=== PATIENT | female | born 1955 | race Caucasian/White ===

== ENCOUNTER 2016-10-10 06:30 | Emergency (ER) | payer MEDICARE, OTHER ==
[~2016-10-10] VITALS: Ht 162.6 cm; Wt 115.2 kg
[~2016-10-10 06:30] MED LIST: INSU100V7 SQ; METF500T4 PO
--- NOTE | 2016-10-10 06:42 | NUR ---
PT W/C TO ER BED 7 PT STATES "WENT FOR DIALYSIS AND BP WAS LOW"; DENIES ANY S/S AT THIS TIME. PT AOX4 RR EVEN AND UNLABORED. NO SOB NOTED. NAD NOTED. NO NVD AT THIS TIME. PT NOT DIAPHORETIC. PT GOWNED AND PLACED ON MONITOR. DR RAVI AT BEDSIDE FOR EVAL.
[2016-10-10] MEDS ORDERED: IV SET PRIMARY PUMP SET 1 EA INFUS.SET MC ONE (06:55)
[2016-10-10] MEDS ORDERED: IV NS 0.9% 250 ML IV ONE (06:55)
[2016-10-10] MEDS ORDERED: IV NS 0.9% 500 ML BAG IV ONE (07:00)
--- NOTE | 2016-10-10 07:15 | NUR ---
UNABLE TO COLLECT URINE. PT STATES SHE IS ANURIC.
--- NOTE | 2016-10-10 07:16 | NUR ---
XRAY AT THE BEDSIDE.
--- NOTE | 2016-10-10 07:22 | NUR ---
REPORT GIVEN TO FRANCO OBREGON FOR CONTINUE OF CARE.
[2016-10-10 07:37] LABS: BASOPHILS % (AUTO) 0.5 % (0.0-2.0); EOSINOPHILS # (AUTO) 0.2 /CMM (0.0-0.7); EOSINOPHILS % (AUTO) 4.5 % (0.0-6.0); HEMATOCRIT 33 % (33-45); HEMOGLOBIN 10.7 g/dL (11.5-14.8); LYMPHOCYTES # (AUTO) 1.1 /CMM (0.8-4.8); LYMPHOCYTES % (AUTO) 26.4 % (20.0-44.0); MEAN CORPUSCULAR HEMOGLOBIN 27 PG (26.0-33.0); MEAN CORPUSCULAR HGB CONC 32 g/dl (31.0-36.0); MEAN CORPUSCULAR VOLUME 84 fL (82-100); MONOCYTES # (AUTO) 0.4 /CMM (0.1-1.30); MONOCYTES % (AUTO) 10.6 % (2.0-12.0); NEUTROPHILS # (AUTO) 2.3 /CMM (1.8-8.9); PLATELET COUNT (AUTO) 193 /CMM (150-450); RDW COEFFICIENT OF VARIATION 18.9 (11.5-15.0)
[2016-10-10 07:49] LABS: CALCIUM, SERUM 8.2 mg/dL (8.5-10.1); CARBON DIOXIDE 28 mmol/L (21-32); CHLORIDE 101 mmol/L (98-107); GFR 6 mL/min (>60); GLUCOSE 104 mg/dL (74-106); POTASSIUM 4.6 mmol/L (3.5-5.1); SODIUM SERUM 135 mmol/L (136-145); UREA NITROGEN, BLOOD 33 mg/dL (7-18)
[2016-10-10 07:53] LABS: LACTIC ACID 1.1 mmol/L (0.4-2.0)
[2016-10-10 07:54] LABS: CREATININE 7.5 mg/dL (0.6-1.3)
[2016-10-10 07:58] LABS: INR 0.95 (0.87-1.13); PROTHROMBIN TIME 10.1 SECS (9.5-12.7)
[2016-10-10 08:00] LABS: ALANINE AMINOTRANSFERASE 14 U/L (12-78); ALBUMIN 3.2 g/dL (3.4-5.0); ALKALINE PHOSPHATASE 200 U/L (46-116); ASPARTATE AMINOTRANSFERASE 10 U/L (15-37); BILIRUBIN,DIRECT 0.1 mg/dL (0.0-0.2); BILIRUBIN,TOTAL 0.4 mg/dL (0.2-1.0); TOTAL PROTEIN, SERUM 7.5 g/dL (6.4-8.2); TROPONIN I < 0.017 ng/mL (0.00-0.056)
--- NOTE | 2016-10-10 08:49 | NUR ---
Paged Dr. Alia Garcia for consult, she is not in the office today
--- NOTE | 2016-10-10 08:57 | NUR ---
paged Dr. Doll, the financial services professional for Dr. Elizabeth
[2016-10-10 09:43] VITALS: BP 125/85
--- NOTE | 2016-10-10 09:44 | NUR ---
Patient discharged to home in stable condition. Written and verbal after care instructions given. Patient verbalizes understanding of instruction.IV removed. Catheter intact and site benign. Pressure and 4x4 applied to site. No bleeding noted.
== END 2016-10-10 09:44 | disposition home or self-care (01) ==
LOC: ER 06:31
DX: I12.0 Hypertensive chronic kidney disease with stage 5 chronic kidney disease or end stage renal disease (principal); I95.9 Hypotension, unspecified; E11.9 Type 2 diabetes mellitus without complications; Z89.512 Acquired absence of left leg below knee; Z79.4 Long term (current) use of insulin; Z99.2 Dependence on renal dialysis
CPT/HCPCS: 36415; 71010-TC; 80048-TC; 80076-TC; 83605-TC; 84484-TC; 85025-TC; 85730-TC; 87040-TC; A4606; J7050; Z7610

== ENCOUNTER 2017-09-06 23:30 | Emergency (ER) | payer MEDICARE, OTHER ==
[~2017-09-06] VITALS: Ht 162.6 cm; Wt 118.4 kg
[~2017-09-06 23:30] MED LIST changes: +METF-440 PO; -METF500T4 PO
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
[2017-09-07] MEDS ORDERED: HYDROCODONE/APAP 5/325MG 1 EACH TABLET PO ONE (00:30)
[2017-09-07] MEDS ORDERED: HYDROCODONE/APAP 5/325MG 1 EACH TABLET ONE (00:34)
--- NOTE | 2017-09-07 00:35 | NUR ---
xr at bedside.
[2017-09-07] MEDS ORDERED: diphenhydrAMINE HCL 25 MG CAPSULE ONE (02:25)
--- NOTE | 2017-09-07 04:13 | NUR ---
Patient discharged in stable condition. Written and verbal after care instructions given. Patient verbalizes understanding of instruction. Patient wheeled to [facility]. Nad noted. vss. No further complaints.
[2017-09-07 04:15] VITALS: BP 128/76
== END 2017-09-07 04:15 | disposition home or self-care (01) ==
LOC: ER 23:31
DX: S40.011A Contusion of right shoulder, initial encounter (principal); I10 Essential (primary) hypertension; E11.9 Type 2 diabetes mellitus without complications; Z99.2 Dependence on renal dialysis; Z86.73 Personal history of transient ischemic attack (TIA), and cerebral infarction without residual deficits; Z89.512 Acquired absence of left leg below knee; Z79.4 Long term (current) use of insulin; V00.831A Fall from motorized mobility scooter, initial encounter; Y93.89 Activity, other specified; Y92.413 State road as the place of occurrence of the external cause; Y99.8 Other external cause status
CPT/HCPCS: 73030-TC; 73060-TC; A4606; Q0163; Z7610

== ENCOUNTER → 2019-06-18 | Emergency (ER) | payer MEDICARE, OTHER ==
[~2019-06-18] VITALS: Ht 162.6 cm; Wt 117.9 kg
[~2019-06-18] MED LIST changes: +oxyCODONE/APAP (5/325 MG) 1 UDTAB TABLET ONE; +oxyCODONE/APAP (5/325 MG) 1 UDTAB TABLET PO ONE
[2019-06-18 13:13] VITALS: BP 129/60
== END | disposition home or self-care (01) ==
LOC: ER 13:05
DX: G54.6 Phantom limb syndrome with pain (principal); E11.22 Type 2 diabetes mellitus with diabetic chronic kidney disease; I12.0 Hypertensive chronic kidney disease with stage 5 chronic kidney disease or end stage renal disease; N18.6 End stage renal disease; Z99.2 Dependence on renal dialysis; Z98.890 Other specified postprocedural states; Z79.84 Long term (current) use of oral hypoglycemic drugs; Z79.4 Long term (current) use of insulin; Z89.512 Acquired absence of left leg below knee
CPT/HCPCS: 73552

== ENCOUNTER 2019-07-11 19:03 | Emergency (ER) | payer MEDICARE, OTHER ==
[~2019-07-11] VITALS: Ht 162.6 cm; Wt 110.2 kg
[~2019-07-11 19:03] MED LIST changes: -oxyCODONE/APAP (5/325 MG) 1 UDTAB TABLET ONE; -oxyCODONE/APAP (5/325 MG) 1 UDTAB TABLET PO ONE
[2019-07-11] MEDS ORDERED: LORAZEPAM INJ 2 MG/ML VIAL ONE (19:25)
[2019-07-11] MEDS ORDERED: FUROSEMIDE 40 MG/4 ML VIAL ONE (19:25)
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
[2019-07-11] MEDS ORDERED: ONDANSETRON 4 MG TAB.RAPDIS ONE (19:48)
[2019-07-11] MEDS ORDERED: ONDANSETRON 4 MG TAB.RAPDIS PO ONE (20:00)
--- NOTE | 2019-07-11 20:12 | NUR ---
Patient discharged to home in stable condition. Written and verbal after care instructions given. Patient verbalizes understanding of instruction. Tap card given as requested by patient
[2019-07-11 20:15] VITALS: BP 121/84
[2019-09-04] MEDS ORDERED: RXVAN XX (10:24)
== END 2019-07-11 20:15 | disposition home or self-care (01) ==
LOC: ER 19:04
DX: S39.012A Strain of muscle, fascia and tendon of lower back, initial encounter (principal); E11.22 Type 2 diabetes mellitus with diabetic chronic kidney disease; N18.6 End stage renal disease; Z99.2 Dependence on renal dialysis; Z89.512 Acquired absence of left leg below knee; Z98.890 Other specified postprocedural states; Z60.2 Problems related to living alone; Z79.4 Long term (current) use of insulin; Z79.84 Long term (current) use of oral hypoglycemic drugs; V03.99XA Pedestrian with other conveyance injured in collision with car, pick-up truck or van, unspecified whether traffic or nontraffic accident, initial encounter; Y93.89 Activity, other specified; Y92.413 State road as the place of occurrence of the external cause; Y99.8 Other external cause status
CPT/HCPCS: 99283; Q0162; J1940; J2060

== ENCOUNTER 2019-08-29 08:39 | Inpatient (IN) | payer MEDICARE, OTHER ==
[~2019-08-29] VITALS: Ht 162.6 cm; Wt 111.1 kg
[2019-08-29] MEDS ORDERED: PIPERACILLIN /TAZOBACTAM 3.375 G in IV D5W 50 ML IV ONE (10:00)
[2019-08-29] MEDS ORDERED: VANCOMYCIN 1 GM in IV D5W 250 ML IV ONE (10:00)
[2019-08-29] MEDS ORDERED: IV NS 0.9% 1,000 ML BAG IV ONE (10:00)
--- NOTE | 2019-08-29 10:09 | NUR ---
LINE STARTED ON L AC G 20, BLOOD AND CULTURES DRAWN FROM LINE AND SENT TO LAB
[2019-08-29 10:13] LABS: BASOPHILS % (AUTO) 0.6 % (0.0-2.0); EOSINOPHILS % (AUTO) 3.3 % (0.0-6.0); HEMATOCRIT 44 % (33-45); HEMOGLOBIN 13.5 g/dL (11.5-14.8); LYMPHOCYTES # (AUTO) 0.6 /CMM (0.8-4.8); MEAN CORPUSCULAR HGB CONC 31 g/dl (31.0-36.0); MEAN CORPUSCULAR VOLUME 80 fL (82-100); MONOCYTES # (AUTO) 0.5 /CMM (0.1-1.30); MONOCYTES % (AUTO) 9.6 % (2.0-12.0); NEUTROPHILS # (AUTO) 4.1 /CMM (1.8-8.9); NEUTROPHILS % (AUTO) 75.5 % (43.0-81.0); PLATELET COUNT (AUTO) 190 /CMM (150-450); RED BLOOD CELL COUNT(AUTO) 5.55 MIL/uL (4.0-5.2); WHITE BLOOD COUNT (AUTO) 5.4 K/uL (4.3-11.0)
[2019-08-29 10:28] LABS: ALANINE AMINOTRANSFERASE 12 U/L (12-78); ALBUMIN 3.2 g/dL (3.4-5.0); ALKALINE PHOSPHATASE 246 U/L (46-116); ASPARTATE AMINOTRANSFERASE 15 U/L (15-37); BILIRUBIN,DIRECT 0.1 mg/dL (0.0-0.2); BILIRUBIN,TOTAL 0.4 mg/dL (0.2-1.0); CALCIUM, SERUM 8.8 mg/dL (8.5-10.1); CARBON DIOXIDE 29 mmol/L (21-32); CHLORIDE 98 mmol/L (98-107); CREATININE 6.6 mg/dL (0.6-1.3); GLUCOSE 72 mg/dL (74-106); SODIUM SERUM 138 mmol/L (136-145); TOTAL PROTEIN, SERUM 8.4 g/dL (6.4-8.2); UREA NITROGEN, BLOOD 19 mg/dL (7-18)
[2019-08-29] MEDS ORDERED: MORPHINE SULFATE INJ 4 MG/ML DISP.SYRIN ONE (10:33)
[2019-08-29] MEDS ORDERED: ONDANSETRON HCL/PF 4 MG/2 ML VIAL ONE (10:33)
--- NOTE | 2019-08-29 10:42 | NUR ---
CALLED NURSING SUP FOR TELE BED.
[2019-08-29] MEDS ORDERED: ONDANSETRON HCL/PF 4 MG/2 ML VIAL IVP ONE (11:00)
[2019-08-29] MEDS ORDERED: MORPHINE SULFATE INJ 2 MG/ML DISP.SYRIN IV ONE ×2 (11:00→21:30)
--- NOTE | 2019-08-29 11:31 | NUR ---
BED ASSIGNED TO 311-1
--- NOTE | 2019-08-29 11:56 | NUR ---
REPORT GIVEN TO MS RN FOR CONTINUITY OF CARE
[2019-08-29] MEDS ORDERED: DULO20CA19 PO (12:11)
[2019-08-29] MEDS ORDERED: MIDO5TAB4 PO (12:11)
[2019-08-29] MEDS ORDERED: GABA600T12 PO (12:11)
[2019-08-29] MEDS ORDERED: ALPR2TAB7 PO (12:11)
[2019-08-29] MEDS ORDERED: SEVE800T28 PO (12:11)
[2019-08-29] MEDS ORDERED: OXYC-454 PO (12:11)
[2019-08-29] MEDS ORDERED: INSU100V10 SL (12:11)
--- NOTE | 2019-08-29 12:30 | NUR ---
TRACER BULLET CHARGING MACHINE OPERATOR NOTES PATIENT RECEIVED ALERT AND ORIENTED X4, NO RESPIRATORY DISTRESS, ON 02 AT 2L VIA NASAL CANULA. AOC PLANS INTELLIGENCE OFFICER CHIEF ON SR 80S, C/O PAIN AT 8/10 ON MID BACK. SKIN WARM TO TOUCH, SKIN ASSESSED NO SKIN BREAKDOWN. IV ACCESS SITE ON THE LAC #20G INTACT AND PATENT, VANCOMYCIN IV INFUSING. BELONGINGS ACCOUNTED FOR AND SIGNED. PATIENT'S NEEDS ATTENDED, BED ON LOWEST LOCKED POSITION, CALL LIGHT WITHIN REACH. WILL CONTINUE TO MONITOR.
[2019-08-29 13:00] VITALS: BP 137/77
[2019-08-29] MEDS ORDERED: DEXTROSE 50%-WATER 50 ML DISP.SYRIN IV PRN (14:30)
[2019-08-29] MEDS ORDERED: Z GUARD REMEDY 2 OZ OINT TP PRN (14:30)
[2019-08-29] MEDS ORDERED: MAGNESIUM HYDROXIDE 30 ML UDC PO PRN (14:30)
[2019-08-29] MEDS ORDERED: HYDROCODONE/APAP 5/325MG 1 EACH TABLET PO PRN (14:30)
[2019-08-29] MEDS ORDERED: ACETAMINOPHEN 325 MG TABLET PO PRN (14:30)
[2019-08-29] MEDS ORDERED: MAG HYDROX/AL HYDROX/SIMETH 30 ML UDC PO PRN (14:30)
[2019-08-29] MEDS ORDERED: FEE PK DOSING 1 MIN EA MC ONE (14:35)
[2019-08-29] MEDS: MORPHINE SULFATE INJ 2 MG/ML DISP.SYRIN IV PRN ×2 (14:45→19:33)
[2019-08-29 16:00] VITALS: BP 128/73
[2019-08-29] MEDS: MIDODRINE HCL (5MG) 5 MG TABLET PO SCH (17:00)
[2019-08-29] MEDS ORDERED: Medication Not On Formulary EA (Oxycodone Hcl/Acetaminophen (Oxycodone-Apap 10-325 Mg Ta PO SCH (17:00)
[2019-08-29] MEDS: GABAPENTIN 300 MG CAPSULE PO SCH (17:12)
[2019-08-29] MEDS: SEVELAMER CARBONATE 800 MG TABLET PO SCH (17:13)
[2019-08-29] MEDS: BLOOD SUGAR DIAGNOSTIC 1 EACH STRIP VI SCH ×2 (17:15→22:02)
[2019-08-29] MEDS: INSULIN REGULAR, HUMAN 100 UNIT/ML 3 ML VIAL SQ PRN (17:20)
--- NOTE | 2019-08-29 19:50 | NUR ---
AGRI BUSINESS AGENT NOTES PATIENT AWAKE IN BED ON THE PHONE, NO RESPIRATORY DISTRESS, C/O PAIN IN MID BACK, GAVE MORPHINE IV 2MG. IV ACCESS SITE INTACT AND PATENT, SKIN WARM TO TOUCH. PATIENT'S NEEDS ATTENDED, BED ON LOWEST LOCKED POSITION, CALL LIGHT WITHIN REACH. WILL ENDORSE TO ONCOMING NURSE FOR HARVEY.
--- NOTE | 2019-08-29 19:51 | NUR ---
TELE/RN OPENING NOTES: PATIENT RECEIVED ALERT AND ORIENTED X4, NO RESPIRATORY DISTRESS, ON 2L OF OXYGEN VIA NASAL CANULA. ORTHOPAEDIC GENERAL ON SR 80S, C/O PAIN AT 6/10 ON MID BACK DESPITE HAVING RECEIVED MORPHINE 2MG RECENTLY FOR PAIN. SKIN WARM TO TOUCH, SKIN ASSESSED NO SKIN BREAKDOWN. IV ACCESS SITE ON THE LAC #20G INTACT AND PATENT. PATIENT'S NEEDS ATTENDED, BED ON LOWEST LOCKED POSITION, CALL LIGHT WITHIN REACH. WILL CONTINUE TO MONITOR ACCORDINGLY.
[2019-08-29 20:00] VITALS: BP 133/80
[2019-08-29 20:19] VITALS: BP 133/80
[2019-08-29] MEDS ORDERED: MORPHINE SULFATE INJ 2 MG/ML DISP.SYRIN IV PRN (20:30)
[2019-08-29] MEDS ORDERED: PIPERACILLIN /TAZOBACTAM 2.25 G in IV D5W 50 ML IV SCH (21:00)
[2019-08-29] MEDS: CEFEPIME 1 GM in IV D5W 50 ML IV SCH (21:10)
--- NOTE | 2019-08-29 21:17 | NUR ---
TELE/RN NOTES: DR. WINSTON VILLALOBOS CALLED REGARDING PATIENT'S PAIN CONCERN. ORDERED 2MG MORPHINE IVPUSH ONE TIME ORDER. ADMINISTERED ORDERED. PT IS STABLE. VS WNL. WILL CONTINUE MONITORING ACCORDINGLY.
[2019-08-29] MEDS: INSULIN GLARGINE, 100 UNIT/ML CARTRIDGE SQ SCH (22:08)
[2019-08-29] MEDS: *INSULIN REGULAR(HUMULIN R)HUM 100 UNIT/ML VIAL SQ PRN (22:09)
[2019-08-30] VITALS: BP 107/60
[2019-08-30 04:47] VITALS: BP 134/71
[2019-08-30] MEDS: MORPHINE SULFATE INJ 2 MG/ML DISP.SYRIN IV PRN ×4 (06:35→23:39)
[2019-08-30] MEDS: INSULIN REGULAR, HUMAN 100 UNIT/ML 3 ML VIAL SQ PRN (06:44)
[2019-08-30] MEDS: BLOOD SUGAR DIAGNOSTIC 1 EACH STRIP VI SCH ×4 (06:44→22:07)
--- NOTE | 2019-08-30 06:50 | NUR ---
TELE/RN NOTES: PT. BS CHECK 63. PATIENT IS EATING SANDWICH AND HAD 1 BOX OF APPLE JUICE. WILL RECHECK BS LATER.
--- NOTE | 2019-08-30 07:00 | NUR ---
RN OPENING NOTES RECEIVED PATIENT IN BED. A/OX4. NOT IN ANY FORM OF DISTRESS. NO SOB. NO PAIN OR DISCOMFORT AT THIS TIME. IV ACCESS INTACT AND PATENT. KEPT PATIENT SAFE AND COMFORTABLE. BED IN LOW/LOCKED PSOTIION, SIDERAILS UPX2, CALL LIGHT IN REACH. WILL CONT TO MONIOTR ACCORDINGLY
--- NOTE | 2019-08-30 07:13 | NUR ---
TELE/RN CLOSING NOTES: PATIENT RECEIVED ALERT AND ORIENTED X4, NO RESPIRATORY DISTRESS, ON 2L OF OXYGEN VIA NASAL CANULA. ORGANIC PREPARATION TECHNICIAN ON SR 80S, NO C/O PAIN AT THIS TIME. BS THIS MORNING 63. NO INSULIN GIVEN. PT GIVEN 1 APPLE JUICE. ATE HALF OF A TUNA SANDWICH. ENDORSED TO DAY SHIFT RN TO RECHECK BS LATER. SKIN WARM TO TOUCH, SKIN ASSESSED NO SKIN BREAKDOWN. IV ACCESS SITE ON THE LAC #20G INTACT AND PATENT. PATIENT'S NEEDS ATTENDED, BED ON LOWEST LOCKED POSITION, CALL LIGHT WITHIN REACH. WILL ENDORSE TO DAY SHIFT FOR HARVEY.
[2019-08-30 07:27] LABS: BASOPHILS # (AUTO) 0.1 /CMM (0.0-0.2); BASOPHILS % (AUTO) 1.2 % (0.0-2.0); EOSINOPHILS % (AUTO) 4.7 % (0.0-6.0); HEMATOCRIT 42 % (33-45); HEMOGLOBIN 12.4 g/dL (11.5-14.8); LYMPHOCYTES # (AUTO) 1.1 /CMM (0.8-4.8); LYMPHOCYTES % (AUTO) 23.8 % (20.0-44.0); MEAN CORPUSCULAR HGB CONC 30 g/dl (31.0-36.0); MEAN CORPUSCULAR VOLUME 80 fL (82-100); MONOCYTES # (AUTO) 0.6 /CMM (0.1-1.30); NEUTROPHILS # (AUTO) 2.6 /CMM (1.8-8.9); NEUTROPHILS % (AUTO) 57.3 % (43.0-81.0); PLATELET COUNT (AUTO) 169 /CMM (150-450); RED BLOOD CELL COUNT(AUTO) 5.21 MIL/uL (4.0-5.2); WHITE BLOOD COUNT (AUTO) 4.5 K/uL (4.3-11.0)
[2019-08-30 07:30] LABS: CALCIUM, SERUM 8.1 mg/dL (8.5-10.1); MAGNESIUM 2.4 mg/dL (1.8-2.4); POTASSIUM 5.4 mmol/L (3.5-5.1)
[2019-08-30 07:55] LABS: PHOSPHORUS 8.6 mg/dL (2.5-4.9)
[2019-08-30] MEDS: MIDODRINE HCL (5MG) 5 MG TABLET PO SCH ×2 (08:28→17:00)
[2019-08-30] MEDS: SEVELAMER CARBONATE 800 MG TABLET PO SCH ×3 (08:40→17:16)
[2019-08-30] MEDS: ONDANSETRON HCL/PF 4 MG/2 ML VIAL IVP PRN ×2 (08:41→17:18)
[2019-08-30] MEDS: ALPRAZOLAM 1 MG TABLET PO SCH (08:41)
[2019-08-30] MEDS: GABAPENTIN 300 MG CAPSULE PO SCH ×3 (08:41→16:37)
[2019-08-30] MEDS: DULOXETINE HCL 20 MG CAPSULE.DR PO SCH (08:41)
[2019-08-30 08:42] VITALS: BP 136/71
[2019-08-30] MEDS ORDERED: hydrALAZINE HCL IV 20 MG VIAL ONE (10:46)
[2019-08-30 17:55] VITALS: BP 134/74
--- NOTE | 2019-08-30 19:10 | NUR ---
RN CLOSING NOTES PATIENT IN STABLE CONDITION. ALL NEEDS ATTENDED AND PROVIDED. ALL DUE MEDS GIVEN ORDERED. ASSISTED WITH ADLS. KEPT PATIENT SAFE AND COMFORTABLE. BED IN LOW/ LOCKED POSITION. SIDERIALS UPX2, CALL LIGHT IN REACH. ENDORSED ACCORDINGLY.
--- NOTE | 2019-08-30 19:12 | NUR ---
MS/RN OPENING NOTES: RECEIVED PT. RESTING IN BED. VERBALLY RESPONSIVE AND ABLE TO MAKE NEEDS KNOWN. ALERT AND ORIENTED X4, NO RESPIRATORY DISTRESS, ON ROOM AIR, SATURATING WELL. NO C/O PAIN AT THIS TIME. SKIN WARM TO TOUCH, SKIN ASSESSED NO SKIN BREAKDOWN. LEFT LOWER BKA NOTED. SKIN INTACT. LEFT IV ACCESS SITE ON THE LAC #20G INTACT AND PATENT. RIGHT UA FISTULA HD, PATIENT'S NEEDS ATTENDED, SAFETY MEASURES ARE IN PLACE. BED ON LOWEST LOCKED POSITION, CALL LIGHT WITHIN REACH. WILL CONTINUE TO MONITOR ACCORDINGLY.
[2019-08-30 20:01] VITALS: BP 125/73
[2019-08-30 20:22] VITALS: BP 125/73
[2019-08-30] MEDS: CEFEPIME 1 GM in IV D5W 50 ML IV SCH (20:58)
[2019-08-30] MEDS: INSULIN GLARGINE, 100 UNIT/ML CARTRIDGE SQ SCH (22:00)
--- NOTE | 2019-08-30 22:11 | NUR ---
MS/RN NOTES: PT BLOOD SUGAR CHECK 95. REFUSES SNACK. HELD LANTUS 20UNITS TO PREVENT FROM HYPOGLYCEMIA. PT. STABLE. WILL CONTINUE TO MONITOR.
--- NOTE | 2019-08-31 00:43 | NUR ---
MS/RN NOTES: IV ON THE LEFT AC #20G PULLED OUT. NO BLEEDING NOTED. NO S/S OF INFILTRATION. INSERTED A NEW IV LINE ON THE LEFT FA #22G. INTACT, PATENT, AND FLUSHING WELL.
[2019-08-31 06:31] LABS: CALCIUM, SERUM 8.4 mg/dL (8.5-10.1)
[2019-08-31] MEDS: BLOOD SUGAR DIAGNOSTIC 1 EACH STRIP VI SCH ×4 (06:31→22:02)
--- NOTE | 2019-08-31 06:35 | NUR ---
TELE/RN CLOSING NOTES: PATIENT RECEIVED ALERT AND ORIENTED X4, NO RESPIRATORY DISTRESS, ON ROOM AIR. NO SOB NOTED. TOLERATING WELL. NO C/O PAIN AT THIS TIME. BS THIS MORNING 96. NO INSULIN GIVEN PER SLIDING SCALE. OFFERED APPLE JUICE. SKIN WARM TO TOUCH, SKIN ASSESSED NO SKIN BREAKDOWN. IV ACCESS SITE ON THE LAC #22G INTACT AND PATENT. ALL DUE MEDS GIVEN. PAIN MANAGED THROUGHOUT THE SHIFT. PATIENT'S NEEDS ATTENDED, CONSENT GATHERED FOR HD LATER IN THE DAY. SAFETY MEASURES KEPT IN PLACE. BED ON LOWEST LOCKED POSITION, CALL LIGHT WITHIN REACH. WILL ENDORSE TO DAY SHIFT FOR HARVEY. Addendum: 08/31/19 at 0636 by MURIEL KLEIN RN MS/RN CLOSING NOTES
[2019-08-31 07:31] LABS: CREATININE 11.1 mg/dL (0.6-1.3)
[2019-08-31 07:32] LABS: POTASSIUM 7.2 mmol/L (3.5-5.1)
--- NOTE | 2019-08-31 07:33 | NUR ---
RN OPENING NOTE Patient is resting in bed, A/O x4, showing no signs of acute distress or SOB, stable on RA. IV line in the LFA #22g s/l is clean and intact. CHE HD fistula noted. Received call from lab: Potassium is 7.2 and Creatinine is 11.1 Will notify MD once doctor's list becomes available. Bed is in lowest position, side rails x2 in upright position, call light is within reach and patient is aware of how to call for assistance when needed. Fall, safety and aspiration precautions enforced. Will continue with plan of care.
[2019-08-31 08:00] VITALS: BP 114/54
--- NOTE | 2019-08-31 08:27 | NUR ---
RN NOTE Notified MD of critical lab 7.2 anf creatinine 11.1. Awaiting for response.
[2019-08-31] MEDS: DULOXETINE HCL 20 MG CAPSULE.DR PO SCH (08:42)
[2019-08-31] MEDS: ALPRAZOLAM 1 MG TABLET PO SCH (08:42)
[2019-08-31] MEDS: SEVELAMER CARBONATE 800 MG TABLET PO SCH ×4 (08:42→18:18)
[2019-08-31] MEDS: MIDODRINE HCL (5MG) 5 MG TABLET PO SCH ×2 (08:42→16:42)
[2019-08-31] MEDS: GABAPENTIN 300 MG CAPSULE PO SCH ×4 (08:42→16:41)
--- NOTE | 2019-08-31 11:00 | NUR ---
RN NOTE Patient is very lethargic and confused this AM, she refused physical therapy and stated "I feel so tired and confused." I spoke with the daughter and the daughter stated that the patient tends to get confused when she takes Xanax and requested to hold the xanax for tomorrow.
--- NOTE | 2019-08-31 12:00 | NUR ---
RN NOTE Dialysis not completed due to malfunction of AV fistula. aware. Nephro aware.
--- NOTE | 2019-08-31 13:00 | NUR ---
RN NOTE Patient was sedated and unarousable. RN Michelet with me at bedside. BP 96/50, HR 86, RR 12, O2 sat 90% on RA. Patient was able to open eyes after a few minutes of trying to arouse her. She remains confused and goes back to sleep.
--- NOTE | 2019-08-31 13:24 | NUR ---
RN NOTE Non-admin 1300 medications due to patient being too lethargic, difficult to arouse. Risk for aspiration. Charge nurse aware.
--- NOTE | 2019-08-31 13:44 | NUR ---
RN NOTE Received orders from Dr. Hinojosa: - consent for right arm AV fistula thrombectomy with possible dialysis cather placement tomorrow 8am. - STAT BMP if K+ is above 5, notify nephro and recommendation for Kayexalate 45 mg. - BMP in AM
--- NOTE | 2019-08-31 14:45 | NUR ---
RN NOTE Patient still remains confused. While patient was being cleaned, we found that she was hiding a bottle of Xanax in her bra. Patient is still very confused. gave the medication to pharmacy. Notified MD. awaiting for response. Will continue to monitor patient closely. Vital signs remains stable.
[2019-08-31] MEDS ORDERED: VANCOMYCIN 500 MG in IV D5W 100 ML IV ONE (15:00)
--- NOTE | 2019-08-31 15:38 | NUR ---
RN NOTE Patient is more awake now, she still remains confused and doesn't know where she is. Vital signs remain stable. Patient on 2L NC saturating 95%
[2019-08-31 16:00] VITALS: BP 112/65
[2019-08-31 16:24] LABS: CALCIUM, SERUM 8.4 mg/dL (8.5-10.1); POTASSIUM 5.8 mmol/L (3.5-5.1)
[2019-08-31 16:30] LABS: CREATININE 10.2 mg/dL (0.6-1.3)
[2019-08-31] MEDS ORDERED: SODIUM POLYSTYRENE SULFONATE 15 G/60 ML BOTTLE PO ONE (17:30)
--- NOTE | 2019-08-31 18:20 | NUR ---
RN NOTE Patient is more awake, still remains confused. Blood sugar is 192. Patient refused insulin coverage stating she is not eating much and complaining of N/V.
--- NOTE | 2019-08-31 19:46 | NUR ---
RN CLOSING NOTE Patient is resting in bed, A/O x1, showing no signs of acute distress or SOB, stable on RA. IV line in the LFA #22g s/l is clean and intact. CHE HD fistula noted. Repeat BMP came back, MD aware. Kayexalate ordered per MD to correct potassium. Per Dr. Hinojosa, HD tomorrow again, if fistula fails again then will follow through with right av shunt thrombectomy and possible dialysis catheter. MRI will be done tomorrow. Bed is in lowest position, side rails x2 in upright position, call light is within reach, fall, safety and aspiration precautions enforced. Will endorse to [employer] certified internetwork expert.
[2019-08-31 20:00] VITALS: BP 155/82
--- NOTE | 2019-08-31 20:00 | NUR ---
RN NOTES RECEIVED PT. SLEEPING BUT AROUSABLE, A/OX3, NOT IN DISTRESS, NO PAIN NOTED, CALL LIGHT WITHIN REACH, SIDERAILSUPX2, CONTINUE TO MONITOR
--- NOTE | 2019-08-31 20:30 | NUR ---
RN NOTES PT. REFUSED DRINKING HER KAYEXALATE, PTSTATED " SHE FEEL NAUSEOUS EVERY TIME SHE DRINK IT "
--- NOTE | 2019-08-31 20:31 | NUR ---
endorsed to PM shift to hold Xanax for tomorrow.
[2019-08-31] MEDS: CEFEPIME 1 GM in IV D5W 50 ML IV SCH (21:45)
[2019-08-31] MEDS: ONDANSETRON HCL/PF 4 MG/2 ML VIAL IVP PRN (21:55)
--- NOTE | 2019-08-31 21:55 | NUR ---
RN NOTES PT. IS VOMITING ( SMALL AMOUNT) ZOFRAN 4 MG IV GIVEN ORDERED
--- NOTE | 2019-08-31 22:00 | NUR ---
RN NOTES BLOOD SUGAR-157, PT REFUSED INSULIN COVER
[2019-08-31] MEDS: INSULIN GLARGINE, 100 UNIT/ML CARTRIDGE SQ SCH (22:04)
--- NOTE | 2019-08-31 23:00 | NUR ---
RN NOTES ENDORSED TO ANOTHER NURSE FOR CONTINUITY OF CARE
--- NOTE | 2019-09-01 07:00 | NUR ---
ms truck repair supervisor closing notes Pt back to sleep after i checked her blood sugar 150, refused to have insulin covered. no signs of hypo /hyper glycemia noted. stable jessica the night. all due meds given and all needs met. Respiration even and non-labored. not in any acute distress noted. kept her warm and comfortable at all times. bed in semi fowlers position with side rails Up x2. place call light at reach. Endorse to am nurse for continuity of care.
[2019-09-01 07:19] LABS: CALCIUM, SERUM 8.1 mg/dL (8.5-10.1)
[2019-09-01 07:25] LABS: POTASSIUM 6.6 mmol/L (3.5-5.1)
[2019-09-01 07:26] LABS: CREATININE 12.1 mg/dL (0.6-1.3)
--- NOTE | 2019-09-01 07:30 | NUR ---
RN MS NOTES PT IN BED, AWAKE, ALERT AND VERBALLY RESPONSIVE, WITH PERIODS OF CONFUSION, NOT IN DISTRESS, CALL LIGHT WITHIN REACH, KEPT WARM AND COMFORTABLE IN BED, NEEDS ATTENDED, ASSISTED WITH MEALS.
[2019-09-01 08:00] VITALS: BP 127/72
[2019-09-01] MEDS: ALPRAZOLAM 1 MG TABLET PO SCH (09:00)
[2019-09-01] MEDS: MIDODRINE HCL (5MG) 5 MG TABLET PO SCH ×2 (09:00→17:00)
[2019-09-01] MEDS: BLOOD SUGAR DIAGNOSTIC 1 EACH STRIP VI SCH ×4 (09:08→21:38)
[2019-09-01] MEDS: DULOXETINE HCL 20 MG CAPSULE.DR PO SCH (09:41)
[2019-09-01] MEDS: SEVELAMER CARBONATE 800 MG TABLET PO SCH ×3 (09:41→18:37)
[2019-09-01] MEDS: GABAPENTIN 300 MG CAPSULE PO SCH ×3 (09:42→18:37)
--- NOTE | 2019-09-01 13:00 | NUR ---
RN MS NOTES PT IN BED, AWAKE, ALERT WITH EPISODES OF CONFUSION, WITH ONGOING DIALYSIS AT THIS TIME, TOLERATES WELL, NEEDS ATTENDED.
[2019-09-01 16:00] VITALS: BP 122/56
--- NOTE | 2019-09-01 16:27 | NUR ---
RN MS NOTES PT STILL WITH SOME CONFUSION, ABLE TO MAKE NEEDS KNOWN, MD AWARE, FAMILY REQUESTS AMMONIA LEVEL, MD AWARE AND GAVE ORDERS, NOTED AND CARRIED OUT, NEEDS ATTENDED,
--- NOTE | 2019-09-01 17:00 | NUR ---
RN MS NOTES MIDODRINE NOT GIVEN, BP WNL.
[2019-09-01] MEDS: VANCOMYCIN 500 MG in IV D5W 100 ML IV PRN (17:42)
--- NOTE | 2019-09-01 18:52 | NUR ---
RN MS NOTES PT IN BED, AWAKE, ALERT AND ORIENTED, STILL WITH CONFUSION, NOT IN DISTRESS, BLOOD SUGAR CHECKED, PM CARE PROVIDED, ALL NEEDS ATTENDED.
--- NOTE | 2019-09-01 19:30 | NUR ---
ARMOR RECONNAISSANCE SPECIALIST NOTE, RECEIVED PATIENT AWAKE AND IN BED, NO S/S OR COMPLAINTS OF PAIN AT THIS TIME. PATIENT BREATHING IS UNLABORED WITH EQUAL RISE AND FALL OF THE CHEST. PATIENT IS ALERT AND ORIENTED X 3 ON ROOM AIR WITH A SPOO2 97%. PATIENT HAS LEFT FOREARM 22 GAUGE SALINE LOCK THAT IS INTACT, PATENT, AND FLUSHING WELL WITH NO S/S OF INFILTRATION. PATIENT ASSISTED WITH TURNING AND REPOSITIONING Q2HR AND PRN FOR COMFORT AND CIRCULATION. PATIENT HAS NO NEEDS AT THIS TIME. PATIENT EDUCATED ON THE USE OF THE CALL LIGHT. PATIENT BED SIDE RAILS UP X 2 FOR SAFETY. PATIENT BED IS LOCKED AND LOW WILL CONTINUE TO MONITOR AND MAINTAIN SAFETY Q15 MIN WITH THE HELP OF STAFF.
[2019-09-01 20:00] VITALS: BP 147/85
[2019-09-01 20:43] VITALS: BP 147/85
[2019-09-01] MEDS: CEFEPIME 1 GM in IV D5W 50 ML IV SCH (20:58)
[2019-09-01] MEDS: *INSULIN REGULAR(HUMULIN R)HUM 100 UNIT/ML VIAL SQ PRN (21:49)
[2019-09-01] MEDS: INSULIN GLARGINE, 100 UNIT/ML CARTRIDGE SQ SCH (21:50)
--- NOTE | 2019-09-01 21:50 | NUR ---
CARBON CAPTURE POWER PLANT MANAGER NOTE, PERFORMED ACCU CHECK ON PATIENT WITH A BLOOD SUGAR RESULT OF 134. PATIENT REFUSED REGULAR INSULIN AND LANTUS INSULIN. OFFERED AFOREMENTIONED MEDICATION THREE TIMES AND STILL PATIENT REFUSED STATING, " NO DON'T GIVE ANY INSULIN ". EDUCATED PATIENT ON THE RISKS AND OF NOT HAVING INSULIN. WILL CONTINUE TO MONITOR THIS PATIENT.
--- NOTE | 2019-09-01 22:55 | NUR ---
MED / QUALITY ASSURANCE COORDINATOR NOTE, PATIENT IS IN BED EASILY AROUSES, ALL SCHEDULED PM MEDS GIVEN. PATIENT HAS NO S/S OR COMPLAINTS OF PAIN AT THIS TIME. PATIENT IS DISPLAYING NO S/S OF APPARENT DISTRESS AT TIS TIME. PATIENT BREATHING IS UNLABORED WITH EQUAL RISE AND FALL OF THE CHEST. PAT KEPT CLEAN, DRY, AND COMFORTABLE. ALL PATIENTS NEEDS ANTICIPATED AND MET. PATIENT BED IS LOW AND LOCKED, CALL LIGHT IN REACH WITH TWO SIDE RAILS UP FOR SAFETY. WILL CONTINUE TO MONITOR AND MAINTAIN SAFETY.
[2019-09-02] MEDS: BLOOD SUGAR DIAGNOSTIC 1 EACH STRIP VI SCH ×4 (06:31→21:37)
--- NOTE | 2019-09-02 06:32 | NUR ---
GRAB OPERATOR NOTE, PERFORMED ACCU CHECK ON PATIENT WITH BLOOD SUGAR RESULT OF 129. 0 UNITS OF REGULAR INSULIN GIVEN PER SLIDING SCALE. WILL CONTINUE TO MONITOR THIS PATIENT.
--- NOTE | 2019-09-02 06:37 | NUR ---
FEEDER CATCHER TOBACCO NOTE, PATIENT AWAKE AND IN BED, NO S/S OR COMPLAINTS OF PAIN AT THIS TIME. PATIENT BREATHING IS UNLABORED WITH EQUAL RISE AND FALL OF THE CHEST. PATIENT IS ALERT AND ORIENTED X 3 ON ROOM AIR. PATIENT HAS LEFT AC 22 GAUGE SALINE LOCK THAT IS INTACT, PATENT, AND FLUSHING WELL WITH NO S/S OF INFILTRATION. PATIENT ASSISTED WITH TURNING AND REPOSITIONING Q2HR AND PRN FOR COMFORT AND CIRCULATION. ALL PATIENT NEEDS ANTICIPATED AND MET. PATIENT KEPT CLEAN, DRY, AND COMFORTABLE THROUGH SHIFT. PATIENT BED SIDE RAILS UP X 2 FOR SAFETY. PATIENT BED IS LOCKED AND LOW WILL ENDORSE TO AM SHIFT FOR CONTINUATION OF CARE.
[2019-09-02 07:07] LABS: CALCIUM, SERUM 8.8 mg/dL (8.5-10.1); POTASSIUM 5.2 mmol/L (3.5-5.1)
[2019-09-02 07:12] LABS: CREATININE 10.2 mg/dL (0.6-1.3)
--- NOTE | 2019-09-02 07:25 | NUR ---
MS RN NOTES RECEIVED PATIENT IN BED RESTING COMFORTABLY IN MODERATE HIGH BACK REST. A/O X1. NO SIGNS OF DISTRESS NOTED AT THIS TIME. IV ACCESS ON LAC #22 INTACT AND PATENT. SAFETY MEASURES IN [place], BED IN LOWEST LOCKED POSITION, SIDE RAIL UP X 2, CALL LIGHT WITHIN REACH. WILL CONTINUE TO MONITOR.
[2019-09-02 08:00] VITALS: BP 95/79
[2019-09-02] MEDS: DULOXETINE HCL 20 MG CAPSULE.DR PO SCH (08:31)
[2019-09-02] MEDS: MIDODRINE HCL (5MG) 5 MG TABLET PO SCH ×2 (08:31→17:00)
[2019-09-02] MEDS: ALPRAZOLAM 1 MG TABLET PO SCH ×2 (08:31→09:00)
[2019-09-02] MEDS: GABAPENTIN 300 MG CAPSULE PO SCH ×3 (08:31→17:00)
[2019-09-02] MEDS: SEVELAMER CARBONATE 800 MG TABLET PO SCH ×3 (08:31→18:14)
--- NOTE | 2019-09-02 09:40 | NUR ---
RN NOTES OPEN THE MEDICATION ALREADY AND PATIENT CHANGED HER MNIND AND REFUSED THE MEDICATION. WASTE XANAX 1MG 2 TABLETS AND WITNESS BY FRANCO FOX.
--- NOTE | 2019-09-02 13:50 | NUR ---
RN NOTES DIALYSIS NURSE ON UNIT, PATIENT WILL BE DIALYZE TODAY, NO SIGNS OF DISTRESS NOTED. WILL CONTINUE TO MONITOR.
[2019-09-02] MEDS: ONDANSETRON HCL/PF 4 MG/2 ML VIAL IVP PRN ×2 (15:02→16:54)
[2019-09-02 16:00] VITALS: BP 156/61
--- NOTE | 2019-09-02 17:00 | NUR ---
RN NOTES PATIENT COMPLAINED OF NAUSEA AND VOMITING, REFUSED MED. GIVEN ZOFRAN IVP. WILL CONTINUE TO MONITOR.
--- NOTE | 2019-09-02 18:45 | NUR ---
MS RN NOTES PATIENT IN BED RESTING COMFORTABLY IN MODERATE HIGH BACK REST. A/O X1. NO SIGNS OF DISTRESS NOTED THROUGHOUT THE SHIFT. IV ACCESS ON LAC #22 INTACT AND PATENT. SAFETY MEASURES IN [place], BED IN LOWEST LOCKED POSITION, SIDE RAIL UP X 2, CALL LIGHT WITHIN REACH. WILL ENDORSE TO HARBOR PATROL POLICE NURSE FOR HARVEY.
[2019-09-02 20:00] VITALS: BP 161/80
[2019-09-02] MEDS: VANCOMYCIN 500 MG in IV D5W 100 ML IV PRN (20:21)
[2019-09-02] MEDS: CEFEPIME 1 GM in IV D5W 50 ML IV SCH (21:41)
[2019-09-02] MEDS: *INSULIN REGULAR(HUMULIN R)HUM 100 UNIT/ML VIAL SQ PRN (21:43)
[2019-09-02] MEDS: INSULIN GLARGINE, 100 UNIT/ML CARTRIDGE SQ SCH (21:44)
--- NOTE | 2019-09-02 21:44 | NUR ---
SUPERVISOR POLICY CHANGE CLERKS NOTE, PERFORMED ACCU CHECK ON PATIENT WITH A BLOOD SUGAR RESULT OF 156. GAVE 2 UNITS OF REGULAR INSULIN PER SLIDING SCALE AND 20 UNITS LANTUS INSULIN ORDERED. ALSO HAD PATIENT DRINK 2 CRANBERRY JUICES AND TWO JELLO SNACKS. WILL CONTINUE TO MONITOR THIS PATIENT.
[2019-09-02 22:24] VITALS: BP 159/80
[2019-09-03 06:30] LABS: BASOPHILS % (AUTO) 0.9 % (0.0-2.0); CALCIUM, SERUM 8.2 mg/dL (8.5-10.1); EOSINOPHILS % (AUTO) 0.3 % (0.0-6.0); HEMATOCRIT 40 % (33-45); HEMOGLOBIN 12.3 g/dL (11.5-14.8); LYMPHOCYTES # (AUTO) 0.6 /CMM (0.8-4.8); MEAN CORPUSCULAR HGB CONC 31 g/dl (31.0-36.0); MEAN CORPUSCULAR VOLUME 78 fL (82-100); MONOCYTES # (AUTO) 0.6 /CMM (0.1-1.30); MONOCYTES % (AUTO) 12.4 % (2.0-12.0); NEUTROPHILS # (AUTO) 3.4 /CMM (1.8-8.9); NEUTROPHILS % (AUTO) 74.4 % (43.0-81.0); PLATELET COUNT (AUTO) 183 /CMM (150-450); POTASSIUM 4.7 mmol/L (3.5-5.1); RED BLOOD CELL COUNT(AUTO) 5.13 MIL/uL (4.0-5.2); WHITE BLOOD COUNT (AUTO) 4.6 K/uL (4.3-11.0)
[2019-09-03] MEDS: BLOOD SUGAR DIAGNOSTIC 1 EACH STRIP VI SCH ×4 (06:32→21:43)
--- NOTE | 2019-09-03 06:32 | NUR ---
BURGLAR ALARM INSPECTOR NOTE, PERFORMED ACCU CHECK ON PATIENT WITH A BLOOD SUGAR RESULT OF 84. GAVE 0 UNITS OF REGULAR INSULIN PER SLIDING SCALE. WILL CONTINUE TO MONITOR THIS PATIENT.
[2019-09-03 08:00] VITALS: BP 169/86
--- NOTE | 2019-09-03 08:00 | NUR ---
MS RN- OPENING NOTES RECEIVED PATIENT FROM SCRAP METAL COLLECTOR NURSE IN BED, AWAKE, CONSCIOUS, COOPERATIVE, NO SIGNS OR RESPIRATORY DISTRESS, IV ACCESS LEFT AC 22G, RIGHT UA AVF FOR DIALYSIS, S/P LEFT BKA.
[2019-09-03] MEDS: SEVELAMER CARBONATE 800 MG TABLET PO SCH ×3 (08:30→18:00)
[2019-09-03] MEDS: GABAPENTIN 300 MG CAPSULE PO SCH ×3 (09:00→17:00)
[2019-09-03] MEDS: MIDODRINE HCL (5MG) 5 MG TABLET PO SCH ×2 (09:00→09:14)
[2019-09-03] MEDS: DULOXETINE HCL 20 MG CAPSULE.DR PO SCH ×2 (09:00→09:14)
[2019-09-03] MEDS: ALPRAZOLAM 1 MG TABLET PO SCH ×2 (09:00→09:14)
--- NOTE | 2019-09-03 09:00 | NUR ---
MS RN NOTES MEDS PATIENT REFUSED TO TAKE HER 9:00AM SCHEDULED MEDICATION.
[2019-09-03 13:00] VITALS: BP 156/84
--- NOTE | 2019-09-03 19:19 | NUR ---
MS RN-CLOSING NOTES ENDORSED TO WASTE AND BATTING WASTE CHOPPER NURSE IN BED, AWAKE, CONFUSE, IV ACCESS LEFT AC 22G, CHE AVF, NO SIGNS OR RESPIRATORY DISTRESS, S/P BKA LEFT, SIDE RAILS UP FOR SAFETY.
[2019-09-03] MEDS: VANCOMYCIN 500 MG in IV D5W 100 ML IV PRN (19:30)
--- NOTE | 2019-09-03 19:30 | NUR ---
MS RN- CLOSING NOTES TALK TO DOUG FROM PHARMACY, HE VERBALIZED THAT VANCOMYCIN IS NOT TO BE GIVEN.
[2019-09-03 20:00] VITALS: BP 157/84
[2019-09-03 20:43] VITALS: BP 157/84
--- NOTE | 2019-09-03 21:03 | NUR ---
WELDER RAILCAR MECHANIC NOTE, RECEIVED PATIENT AWAKE AND IN BED, NO S/S OR COMPLAINTS OF PAIN AT THIS TIME. PATIENT BREATHING IS UNLABORED WITH EQUAL RISE AND FALL OF THE CHEST. PATIENT IS ALERT AND ORIENTED X 3 ON ROOM AIR WITH A SPOO2 97%. PATIENT HAS LEFT AC 22 GAUGE SALINE LOCK THAT IS INTACT, PATENT, AND FLUSHING WELL WITH NO S/S OF INFILTRATION. PATIENT ASSISTED WITH TURNING AND REPOSITIONING Q2HR AND PRN FOR COMFORT AND CIRCULATION. PATIENT HAS NO NEEDS AT THIS TIME. PATIENT EDUCATED ON THE USE OF THE CALL LIGHT. PATIENT BED SIDE RAILS UP X 2 FOR SAFETY. PATIENT BED IS LOCKED AND LOW WILL CONTINUE TO MONITOR AND MAINTAIN SAFETY Q15 MIN WITH THE HELP OF STAFF.
[2019-09-03] MEDS: CEFEPIME 1 GM in IV D5W 50 ML IV SCH (21:26)
[2019-09-03] MEDS: INSULIN GLARGINE, 100 UNIT/ML CARTRIDGE SQ SCH (21:44)
--- NOTE | 2019-09-03 21:45 | NUR ---
WHEEL ASSEMBLER NOTE, PERFORMED ACCU CHECK ON PATIENT WITH A BLOOD SUGAR RESULT OF 139. PATIENT REFUSED REGULAR INSULIN AND LANTUS INSULIN. OFFERED AFOREMENTIONED MEDICATION THREE TIMES AND STILL PATIENT REFUSED STATING, " NO DON'T GIVE ANY INSULIN ". EDUCATED PATIENT ON THE RISKS AND OF NOT HAVING INSULIN. WILL CONTINUE TO MONITOR THIS PATIENT.
--- NOTE | 2019-09-04 06:28 | NUR ---
CLOTH CUTTER NOTE, PERFORMED ACCU CHECK ON PATIENT WITH A BLOOD SUGAR RESULT OF 88. GAVE 0 UNITS OF REGULAR INSULIN PER SLIDING SCALE. WILL CONTINUE TO MONITOR THIS PATIENT.
[2019-09-04 06:37] LABS: BASOPHILS # (AUTO) 0.1 /CMM (0.0-0.2); BASOPHILS % (AUTO) 1.4 % (0.0-2.0); EOSINOPHILS % (AUTO) 1.1 % (0.0-6.0); HEMATOCRIT 40 % (33-45); HEMOGLOBIN 12.2 g/dL (11.5-14.8); LYMPHOCYTES # (AUTO) 0.7 /CMM (0.8-4.8); LYMPHOCYTES % (AUTO) 17.6 % (20.0-44.0); MEAN CORPUSCULAR HGB CONC 31 g/dl (31.0-36.0); MEAN CORPUSCULAR VOLUME 78 fL (82-100); MONOCYTES # (AUTO) 0.6 /CMM (0.1-1.30); MONOCYTES % (AUTO) 14.4 % (2.0-12.0); NEUTROPHILS # (AUTO) 2.6 /CMM (1.8-8.9); NEUTROPHILS % (AUTO) 65.5 % (43.0-81.0); PLATELET COUNT (AUTO) 164 /CMM (150-450); RED BLOOD CELL COUNT(AUTO) 5.16 MIL/uL (4.0-5.2)
[2019-09-04 07:12] LABS: CALCIUM, SERUM 8.3 mg/dL (8.5-10.1); POTASSIUM 4.4 mmol/L (3.5-5.1)
[2019-09-04 07:21] LABS: CREATININE 8.3 mg/dL (0.6-1.3)
[2019-09-04] MEDS: BLOOD SUGAR DIAGNOSTIC 1 EACH STRIP VI SCH ×2 (07:43→12:05)
[2019-09-04 08:00] VITALS: BP 154/81
--- NOTE | 2019-09-04 08:00 | NUR ---
MS RN- OPENING NOTES RECEIVED PATIENT IN BED, AWAKE, CONSCIOUS, COOPERATIVE, LEFT AC 22G, NO REDNESS OR INFILTRATION NOTED, RIGHT UA AVF, NO SIGNS OF BLEEDING NOTED, SIDE RAILS UP.
[2019-09-04] MEDS: SEVELAMER CARBONATE 800 MG TABLET PO SCH ×2 (08:13→13:31)
[2019-09-04] MEDS: MIDODRINE HCL (5MG) 5 MG TABLET PO SCH (08:18)
[2019-09-04] MEDS: GABAPENTIN 300 MG CAPSULE PO SCH ×2 (08:19→13:31)
--- NOTE | 2019-09-04 10:15 | NUR ---
MS RN NOTES TRANSPORTED PATIENT TO MRI.
[2019-09-04] MEDS ORDERED: RXVAN XX (10:24)
--- NOTE | 2019-09-04 12:07 | NUR ---
MS RN NOTES ACCU CHECK 89MG/DL.
[2019-09-04] MEDS: MORPHINE SULFATE INJ 2 MG/ML DISP.SYRIN IV PRN (12:28)
--- NOTE | 2019-09-04 12:28 | NUR ---
MS RN NOTES PATIENT COMPLAINS OF PAIN, WITH A PAIN SCALE OF 10. BP= 150/81, HR= 78. MORHPINE 4 MG GIVEN VIA IV.
[2019-09-04] MEDS ORDERED: GADOTERIDOL 279.3 MG/ML VIAL IV ONE (13:51)
[2019-09-04 16:00] VITALS: BP 143/84
--- NOTE | 2019-09-04 17:10 | NUR ---
MS RN DISCHARGED NOTES BROUGHT PATIENT WITH WHEELCHAIR THROUGH THE LOBBY IN TO A PRIVATE CAR, AWAKE, CONSCIOUS, COOPERATIVE, AMBULATORY WITH ASSISTANCE, NO SIGNS OF RESPIRATORY DISTRESS, AVF ON CHE, NO SIGNS OF BLEEING.
== END 2019-09-04 17:10 | disposition home health service (06) | DRG 314 ==
LOC: ER 08:43 → TELE 11:37 → MED 08-30 10:07
PROVIDERS: ADMIT Internal Medicine; ATTEND Internal Medicine
PROC: 5A1D70Z Performance of Urinary Filtration, Intermittent, Less than 6 Hours Per Day (ICD-10-PCS; principal; 2019-08-31)
DX: T82.41XA Breakdown (mechanical) of vascular dialysis catheter, initial encounter (principal); G93.41 Metabolic encephalopathy; N18.6 End stage renal disease; A41.9 Sepsis, unspecified organism; M46.24 Osteomyelitis of vertebra, thoracic region; I12.0 Hypertensive chronic kidney disease with stage 5 chronic kidney disease or end stage renal disease; M48.54XA Collapsed vertebra, not elsewhere classified, thoracic region, initial encounter for fracture; F11.20 Opioid dependence, uncomplicated; M46.44 Discitis, unspecified, thoracic region; E11.69 Type 2 diabetes mellitus with other specified complication; M48.061 Spinal stenosis, lumbar region without neurogenic claudication; E11.42 Type 2 diabetes mellitus with diabetic polyneuropathy; Z99.2 Dependence on renal dialysis; Y84.9 Medical procedure, unspecified as the cause of abnormal reaction of the patient, or of later complication, without mention of misadventure at the time of the procedure; Y92.9 Unspecified place or not applicable; D63.1 Anemia in chronic kidney disease; E11.22 Type 2 diabetes mellitus with diabetic chronic kidney disease; E66.01 Morbid (severe) obesity due to excess calories; G89.4 Chronic pain syndrome; Z99.3 Dependence on wheelchair; Z89.512 Acquired absence of left leg below knee; Z87.891 Personal history of nicotine dependence; Z79.4 Long term (current) use of insulin; Z79.84 Long term (current) use of oral hypoglycemic drugs; F32.9 Major depressive disorder, single episode, unspecified; F41.9 Anxiety disorder, unspecified
CPT/HCPCS: 36415; 71045-TC; 72128-TC; 72131-TC; 72157-TC; 72158-TC; 80048-TC; 80076-TC; 80202-TC; 82140-TC; 82962-TC; 83605-TC; 83735-TC; 83880; 84100-TC; 84484-TC; 85025-TC; 85652-TC; 85730-TC; 86705; 86706; 87040-TC; 87081-TC; 87340; 90935-TC; 97112-TC; 97530-TC; A9579; G0378; J0360; J0692; J1815; J2270; J2405; J2543; J3370; J7030; J7040; J7050; J7060

== ENCOUNTER 2019-09-09 07:37 | Emergency (ER) | payer MEDICARE, OTHER ==
[~2019-09-09] VITALS: Ht 175.3 cm; Wt 108.9 kg
[~2019-09-09 07:37] MED LIST changes: +ALPR2TAB7 PO; +DULO20CA19 PO; +GABA600T12 PO; +INSU100V10 SL; -INSU100V7 SQ; -METF-440 PO; +MIDO5TAB4 PO; +OXYC-454 PO; +RXVAN XX; +SEVE800T28 PO
--- NOTE | 2019-09-09 07:40 | NUR ---
PT CALVIN FROM DIALYSIS CENTER FOR ABDOMINAL PAIN AND PER EMS REPORT, "DOCTOR SENT HER HERE FOR ABNORMAL LABS." PT DENIES PAIN COUNSELING DIRECTOR. PLACED ON MONITOR. STABLE VITALS NOTED. AWAITING MD GONZALEZ.
--- NOTE | 2019-09-09 07:42 | NUR ---
DR LOMAS AT BEDSIDE FOR EVAL.
--- NOTE | 2019-09-09 08:00 | NUR ---
IV LINE STARTED BLOOD DRAWN AND SENT TO LAB.
[2019-09-09 08:04] LABS: BASOPHILS % (AUTO) 0.5 % (0.0-2.0); EOSINOPHILS % (AUTO) 1.3 % (0.0-6.0); HEMATOCRIT 41 % (33-45); HEMOGLOBIN 12.6 g/dL (11.5-14.8); LYMPHOCYTES # (AUTO) 0.7 /CMM (0.8-4.8); LYMPHOCYTES % (AUTO) 11.4 % (20.0-44.0); MEAN CORPUSCULAR HGB CONC 31 g/dl (31.0-36.0); MEAN CORPUSCULAR VOLUME 78 fL (82-100); MONOCYTES # (AUTO) 0.8 /CMM (0.1-1.30); MONOCYTES % (AUTO) 13.4 % (2.0-12.0); NEUTROPHILS # (AUTO) 4.2 /CMM (1.8-8.9); NEUTROPHILS % (AUTO) 73.4 % (43.0-81.0); PLATELET COUNT (AUTO) 177 /CMM (150-450); RED BLOOD CELL COUNT(AUTO) 5.19 MIL/uL (4.0-5.2); WHITE BLOOD COUNT (AUTO) 5.7 K/uL (4.3-11.0)
[2019-09-09 08:11] LABS: CARBON DIOXIDE 28 mmol/L (21-32); CHLORIDE 101 mmol/L (98-107); CREATININE 6.1 mg/dL (0.6-1.3); GLUCOSE 81 mg/dL (74-106); POTASSIUM 3.8 mmol/L (3.5-5.1); SODIUM SERUM 139 mmol/L (136-145); UREA NITROGEN, BLOOD 24 mg/dL (7-18)
[2019-09-09 08:17] LABS: ALANINE AMINOTRANSFERASE 14 U/L (12-78); ALBUMIN 3.3 g/dL (3.4-5.0); ALKALINE PHOSPHATASE 160 U/L (46-116); ASPARTATE AMINOTRANSFERASE 16 U/L (15-37); BILIRUBIN,DIRECT 0.1 mg/dL (0.0-0.2); BILIRUBIN,TOTAL 0.7 mg/dL (0.2-1.0); TOTAL PROTEIN, SERUM 8.1 g/dL (6.4-8.2)
--- NOTE | 2019-09-09 08:44 | NUR ---
CALLED [facility] FOR TRANSPORT TO [place]. ETA 45 MINUTES.
[2019-09-09 09:36] VITALS: BP 139/87
== END 2019-09-09 09:37 | disposition home or self-care (01) ==
LOC: ER 07:37
DX: R10.84 Generalized abdominal pain (principal); E11.22 Type 2 diabetes mellitus with diabetic chronic kidney disease; N18.6 End stage renal disease; Z99.2 Dependence on renal dialysis; Z98.890 Other specified postprocedural states; Z60.2 Problems related to living alone; Z79.899 Other long term (current) drug therapy; Z79.4 Long term (current) use of insulin; Z79.84 Long term (current) use of oral hypoglycemic drugs
CPT/HCPCS: 36415; 71045-TC; 80048-TC; 80076-TC; 84484-TC; 85025-TC

== ENCOUNTER 2020-02-10 06:21 | Emergency (ER) | payer MEDICARE, OTHER ==
[~2020-02-10] VITALS: Ht 162.6 cm; Wt 98.4 kg
[~2020-02-10 06:21] MED LIST changes: -OXYC-454 PO; +OXYC1TAB12 PO
--- NOTE | 2020-02-10 06:30 | NUR ---
PT BIBA FROM RENAL CARE C/O L LOWER EXTREMITY SPASMS DURING DIALYSIS PREVENTION COORDINATOR. PT DENIES HAVING SPASMS AT THIS TIME. PT ALSO ENDORSES LOWER ABD PAIN. PT AAOX4, VSS, RESPIRATIONS EVEN AND UNALORED ON RA W/ NAD NOTED. PT CONNECTED TO THE HAND PLATE STACKER AND POX
[2020-02-10] MEDS ORDERED: ACETAMINOPHEN 325 MG TABLET ONE (06:33)
--- NOTE | 2020-02-10 06:33 | NUR ---
EKG AT BEDSIDE
--- NOTE | 2020-02-10 06:38 | NUR ---
NEWS CAMERA OPERATOR AT BEDSIDE
[2020-02-10 06:52] LABS: BASOPHILS % (AUTO) 0.4 % (0.0-2.0); EOSINOPHILS % (AUTO) 2.8 % (0.0-6.0); HEMATOCRIT 38 % (33-45); HEMOGLOBIN 11.7 g/dL (11.5-14.8); LYMPHOCYTES # (AUTO) 1.1 /CMM (0.8-4.8); LYMPHOCYTES % (AUTO) 20.2 % (20.0-44.0); MEAN CORPUSCULAR HGB CONC 31 g/dl (31.0-36.0); MEAN CORPUSCULAR VOLUME 83 fL (82-100); MONOCYTES # (AUTO) 0.5 /CMM (0.1-1.30); MONOCYTES % (AUTO) 8.8 % (2.0-12.0); NEUTROPHILS # (AUTO) 3.7 /CMM (1.8-8.9); NEUTROPHILS % (AUTO) 67.8 % (43.0-81.0); PLATELET COUNT (AUTO) 187 /CMM (150-450); RED BLOOD CELL COUNT(AUTO) 4.54 MIL/uL (4.0-5.2); WHITE BLOOD COUNT (AUTO) 5.5 K/uL (4.3-11.0)
[2020-02-10] MEDS: ACETAMINOPHEN 325 MG TABLET PO ONE (06:53)
[2020-02-10] MEDS ORDERED: oxyCODONE/APAP (5/325 MG) 1 UDTAB TABLET ONE (06:57)
[2020-02-10 06:58] LABS: CALCIUM, SERUM 8.7 mg/dL (8.5-10.1); CREATININE 5.6 mg/dL (0.6-1.3); POTASSIUM 3.6 mmol/L (3.5-5.1)
[2020-02-10] MEDS: oxyCODONE/APAP (5/325 MG) 1 UDTAB TABLET PO ONE (07:03)
--- NOTE | 2020-02-10 07:36 | NUR ---
PT'S ADDRESS: [id number], [address], [place]
--- NOTE | 2020-02-10 07:46 | NUR ---
CALLED [facility] FOR TRANSPORT TO [place]. ETA 1626.
[2020-02-10 08:41] VITALS: BP 146/85
--- NOTE | 2020-02-10 08:41 | NUR ---
Patient discharged to home in stable condition. Written and verbal after care instructions given. Patient verbalizes understanding of instruction.
== END 2020-02-10 08:41 | disposition home or self-care (01) ==
LOC: ER 06:25
DX: M79.605 Pain in left leg (principal); K59.00 Constipation, unspecified; G54.6 Phantom limb syndrome with pain; E11.22 Type 2 diabetes mellitus with diabetic chronic kidney disease; N18.6 End stage renal disease; Z89.512 Acquired absence of left leg below knee; Z99.2 Dependence on renal dialysis; Z98.890 Other specified postprocedural states; Z60.2 Problems related to living alone; Z79.899 Other long term (current) drug therapy; Z79.4 Long term (current) use of insulin
CPT/HCPCS: 36415; 80048-TC; 85025-TC

== ENCOUNTER 2020-02-27 07:53 | Emergency (ER) | payer MEDICARE, OTHER ==
[~2020-02-27] VITALS: Ht 157.5 cm; Wt 96.2 kg
--- NOTE | 2020-02-27 07:53 | NUR ---
PT BIBRA 909 C/O ABDOMINAL PAIN RADIATING TO LOWER BACK. PT IS AAOX4, NOT IN RESPIRATORY DISTRESS, HOOKED TO LDR NURSE, KEPT RESTED AND COMFORTABLE. WILL CONTINUE TO MONITOR.
--- NOTE | 2020-02-27 08:01 | NUR ---
CALVIN. pt aox4. with c/o lower abdominal pain and lower back pain since 3am this morning. no n/v. kept pt comfortable. all needs attended. awaiting for MD germain
--- NOTE | 2020-02-27 08:04 | NUR ---
AT BEDSIDE FOR EVAL.
--- NOTE | 2020-02-27 08:04 | NUR ---
seen and evaluated by
--- NOTE | 2020-02-27 08:35 | NUR ---
ER PHLEB AT BEDSIDE FOR BLOOD DRAW.
--- NOTE | 2020-02-27 08:39 | NUR ---
PT IS WHEELED TO CT SCAN VIA [facility].
[2020-02-27] MEDS ORDERED: oxyCODONE/APAP (5/325 MG) 1 UDTAB TABLET ONE (08:53)
[2020-02-27] MEDS ORDERED: oxyCODONE/APAP (5/325 MG) 1 UDTAB TABLET PO ONE (09:00)
[2020-02-27 09:10] LABS: BASOPHILS % (AUTO) 0.8 % (0.0-2.0); EOSINOPHILS % (AUTO) 2.8 % (0.0-6.0); HEMATOCRIT 37 % (33-45); HEMOGLOBIN 11.5 g/dL (11.5-14.8); LYMPHOCYTES # (AUTO) 1.2 /CMM (0.8-4.8); LYMPHOCYTES % (AUTO) 25.2 % (20.0-44.0); MEAN CORPUSCULAR HGB CONC 31 g/dl (31.0-36.0); MEAN CORPUSCULAR VOLUME 81 fL (82-100); MONOCYTES # (AUTO) 0.4 /CMM (0.1-1.30); MONOCYTES % (AUTO) 9.3 % (2.0-12.0); NEUTROPHILS # (AUTO) 2.9 /CMM (1.8-8.9); NEUTROPHILS % (AUTO) 61.9 % (43.0-81.0); PLATELET COUNT (AUTO) 250 /CMM (150-450); RED BLOOD CELL COUNT(AUTO) 4.54 MIL/uL (4.0-5.2); WHITE BLOOD COUNT (AUTO) 4.7 K/uL (4.3-11.0)
[2020-02-27 09:12] LABS: CALCIUM, SERUM 8.8 mg/dL (8.5-10.1); CREATININE 4.6 mg/dL (0.6-1.3); POTASSIUM 4.1 mmol/L (3.5-5.1)
[2020-02-27 09:17] LABS: ALBUMIN 2.8 g/dL (3.4-5.0); BILIRUBIN,DIRECT 0.1 mg/dL (0.0-0.2); BILIRUBIN,TOTAL 0.3 mg/dL (0.2-1.0); TOTAL PROTEIN, SERUM 7.6 g/dL (6.4-8.2)
--- NOTE | 2020-02-27 09:34 | NUR ---
CALLED [facility] FOR TRANSPORT TO [place]. ETA 1030.
--- NOTE | 2020-02-27 11:30 | NUR ---
Patient discharged to home in stable condition. Written and verbal after care instructions given. Patient verbalizes understanding of instruction.
--- NOTE | 2020-02-27 11:37 | NUR ---
REPORT GIVEN TO EMT FOR PT DISCHARGED BACK HOME.
[2020-02-27 11:38] VITALS: BP 123/74
== END 2020-02-27 11:39 | disposition home or self-care (01) ==
LOC: ER 07:59
DX: E11.22 Type 2 diabetes mellitus with diabetic chronic kidney disease (principal); N18.6 End stage renal disease; K59.00 Constipation, unspecified; Z99.2 Dependence on renal dialysis; Z89.512 Acquired absence of left leg below knee; Z98.890 Other specified postprocedural states; Z60.2 Problems related to living alone; Z79.4 Long term (current) use of insulin; Z79.899 Other long term (current) drug therapy
CPT/HCPCS: 36415; 80048-TC; 80076-TC; 85025-TC; 85730-TC

== ENCOUNTER 2020-07-27 09:00 | Inpatient (IN) | payer MEDICARE, OTHER ==
[~2020-07-27] VITALS: Ht 165.1 cm; Wt 103.4 kg
[~2020-07-27 09:00] MED LIST changes: -INSU100V10 SL; +INSU100V10 SQ
--- NOTE | 2020-07-27 09:15 | NUR ---
MASON GONZALEZ From Dialysis Center "More altered than usual after dialysis. BS115." Abble to answer simple questions-Pt repeating self over and over. Pt AAOx3, vss. rr even & unlabored. Denies cp, sob, dizziness, weakness at this time. Pt seen & eval'd by Dr. Lu. will cont to monitor.
[2020-07-27 09:31] LABS: BASOPHILS % (AUTO) 0.5 % (0.0-2.0); EOSINOPHILS % (AUTO) 1.4 % (0.0-6.0); HEMATOCRIT 35 % (33-45); LYMPHOCYTES # (AUTO) 1.2 /CMM (0.8-4.8); LYMPHOCYTES % (AUTO) 27.3 % (20.0-44.0); MEAN CORPUSCULAR HGB CONC 32 g/dl (31.0-36.0); MEAN CORPUSCULAR VOLUME 85 fL (82-100); MONOCYTES # (AUTO) 0.5 /CMM (0.1-1.30); MONOCYTES % (AUTO) 11.2 % (2.0-12.0); NEUTROPHILS # (AUTO) 2.7 /CMM (1.8-8.9); NEUTROPHILS % (AUTO) 59.6 % (43.0-81.0); PLATELET COUNT (AUTO) 196 /CMM (150-450); RED BLOOD CELL COUNT(AUTO) 4.12 MIL/uL (4.0-5.2); WHITE BLOOD COUNT (AUTO) 4.5 K/uL (4.3-11.0)
--- NOTE | 2020-07-27 09:32 | NUR ---
PT TO CT VIA [facility].
[2020-07-27 09:33] LABS: CALCIUM, SERUM 8.9 mg/dL (8.5-10.1); CARBON DIOXIDE 30 mmol/L (21-32); CHLORIDE 98 mmol/L (98-107); GLUCOSE 105 mg/dL (74-106); POTASSIUM 3.9 mmol/L (3.5-5.1); SODIUM SERUM 138 mmol/L (136-145); UREA NITROGEN, BLOOD 17 mg/dL (7-18)
[2020-07-27 09:38] LABS: ALANINE AMINOTRANSFERASE 17 U/L (12-78); ALBUMIN 3.5 g/dL (3.4-5.0); ALCOHOL, BLOOD < 3 mg/dL (0-0); ALKALINE PHOSPHATASE 247 U/L (46-116); ASPARTATE AMINOTRANSFERASE 19 U/L (15-37); BILIRUBIN,DIRECT 0.1 mg/dL (0.0-0.2); BILIRUBIN,TOTAL 0.5 mg/dL (0.2-1.0); TOTAL PROTEIN, SERUM 8.2 g/dL (6.4-8.2)
[2020-07-27 09:40] LABS: ACETAMINOPHEN 0 ug/ml (10-30)
[2020-07-27 10:04] LABS: SERUM AMMONIA 2 umol/L (11-32)
[2020-07-27 10:13] LABS: THYROID STIMULATING HORMONE 0.205 uIU/mL (0.358-3.74)
[2020-07-27] MEDS ORDERED: ONDANSETRON 4 MG TAB.RAPDIS ONE (10:17)
--- NOTE | 2020-07-27 10:23 | NUR ---
MEDICATED PER ERMD ORDER, PT ANASTACIA WELL.
[2020-07-27] MEDS ORDERED: ONDANSETRON 4 MG TAB.RAPDIS SL ONE (10:30)
[2020-07-27] MEDS ORDERED: LORAZEPAM INJ 2 MG/ML VIAL IV ONE (11:00)
[2020-07-27] MEDS ORDERED: LORAZEPAM INJ 2 MG/ML VIAL ONE (11:06)
--- NOTE | 2020-07-27 11:08 | NUR ---
[facility] CALLED AWAITING FOR HOSPITALIST CALL BACK
[2020-07-27] MEDS ORDERED: PREG25CA19 PO (11:19)
--- NOTE | 2020-07-27 11:23 | NUR ---
MOVE SHEET SUBMITTED AND CALLED FOR MS BED.
--- NOTE | 2020-07-27 11:29 | NUR ---
GOT BED 314-2
--- NOTE | 2020-07-27 11:57 | NUR ---
REPORT GIVEN TO FRANCO CARTAGENA FOR HARVEY.
--- NOTE | 2020-07-27 12:02 | NUR ---
Covid antigen swab done, urine collection done and the specimen are taken to the lab.
[2020-07-27 12:14] LABS: BILIRUBIN,URINE MODERATE (NEGATIVE); COLOR,URINE BROWN (YELLOW); LEUKOCYTE ESTERASE ,URINE MODERATE (NEGATIVE); NITRITE, URINE POSITIVE (NEGATIVE); PROTEIN,URINE >=300 mg/dl (NEGATIVE); UGLUCOSE NEGATIVE (NEGATIVE)
[2020-07-27 12:24] LABS: BACTERIA,URINE Few /HPF (None Seen); RBC,URINE 21-50 /HPF (0-2); SQUAMOUS EPITHELIAL CELL,UR Few /HPF (None Seen); WBC,URINE TOO NUMEROUS TO COUN /HPF (0-3)
--- NOTE | 2020-07-27 12:45 | NUR ---
MS RN NOTES ADMITTED PATIENT FROM ER REPORT GIVEN BY JAVIER GAMEZ. PATIENT IN BED ALERT ORIENTED X 3. NO ACUTE DISTRESS NOTED. BREATHING UNLABORED. IV ACCESS PATENT AND INTACT, NO REDNESS, NO SWELLING NOTED. HD ACCESS INTACT. ORIENTED TO THE ROOM .SAFETY MEASURES IN PLACE. CALL LIGHT WITHIN REACH. WILL CONTINUE TO MONITOR ACCORDINGLY
[2020-07-27] MEDS ORDERED: DEXTROSE 50%-WATER 50 ML DISP.SYRIN IV PRN (13:30)
[2020-07-27] MEDS ORDERED: Z GUARD REMEDY 2 OZ OINT TP PRN (13:30)
[2020-07-27] MEDS: CEFTRIAXONE 1 G in IV D5W 50 ML IV SCH (15:02)
[2020-07-27 16:00] VITALS: BP 163/77
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
[2020-07-27] MEDS: MIDODRINE HCL (5MG) 5 MG TABLET PO SCH (17:00)
[2020-07-27] MEDS: BLOOD SUGAR DIAGNOSTIC 1 EACH STRIP VI SCH ×2 (18:02→21:51)
[2020-07-27] MEDS: SEVELAMER CARBONATE 800 MG TABLET PO SCH (18:02)
--- NOTE | 2020-07-27 19:00 | NUR ---
MS RN NOTES PATIENT IN BED ALERT ORIENTED X 3. NO ACUTE DISTRESS NOTED. BREATHING UNLABORED. IV ACCESS PATENT AND INTACT, NO REDNESS, NO SWELLING NOTED. HD ACCESS INTACT. SAFETY MEASURES IN PLACE. CALL LIGHT WITHIN REACH. WILL ENDORSE TO NIGHT NURSE FOR CONTINUITY OF CARE.
--- NOTE | 2020-07-27 19:05 | NUR ---
RN NOTES: RECEIVED ASLEEP ON BED DURING ENDORSEMENT, THEN SHE WAS AWAKEN, A/0-2-3,ORIENTED TO UNIT AND STAFF, ON ROOM AIR, TELE MONITOR ST-99, FALL,SAFETY, ASPIRATION AND SEIZURE PRECAUTION OBSERVED,WITH LEFT BKA,PARAPLEGIA, CHE-AV GRAFT SHUNT, LAC G#18 HL, PER ENDORSEMENT SHE WAS ASLEEP MOST OF THE TIME.
--- NOTE | 2020-07-27 19:45 | NUR ---
RN NOTES: VOMITED ONCE,SMALL AMOUNT, AROUND 50CC MORE OF WATER AND LITTLE AMOUNT OF SOLID FOOD, SHE JUST SPOKE WITH HER DAUGHTER AND SHE SAID SHE FELT ANXIOUS AND THUS TRIGGER HER TO VOMIT,CLEAN AND CHANGE,WILL CONTINUE TO MONITOR
[2020-07-27 20:00] VITALS: BP_SYST 164; BP_SYST 165; BP_DIAS 84; BP_DIAS 86
[2020-07-27] MEDS: ACETAMINOPHEN 325 MG TABLET PO PRN (20:19)
[2020-07-27] MEDS: HEPARIN SODIUM, PORCINE 5000 UNITS/1 ML VIAL SQ SCH (20:20)
--- NOTE | 2020-07-27 20:20 | NUR ---
RN NOTES: EVENING CARE DONE, CLEAN AND CHANGE, REPOSITIONED, REQUEST FOR PAIN MEDICATION, NON PHARMACOLOGIC INTERVENTION RENDERED, DIM LIT AND GIVEN WARM BLANKET.
[2020-07-27] MEDS: ATORVASTATIN 10 MG TABLET PO SCH (21:16)
[2020-07-27] MEDS: INSULIN GLARGINE, 100 UNIT/ML CARTRIDGE SQ SCH (21:52)
--- NOTE | 2020-07-27 21:54 | NUR ---
RN NOTES: BLOOD SUGAR CHECK-87,NOTIFIED CN/RN, NURY NOT GIVEN,NO SLIDING SCALE COVERAGE GIVEN. Addendum: 07/27/20 at 2206 by ED GORDON RN CORRECTION: BLOOD SUGAR IS 82 NOT 87(WRONG ENTRY).
[2020-07-27] MEDS: *INSULIN REGULAR(HUMULIN R)HUM 100 UNIT/ML VIAL SQ PRN (21:56)
--- NOTE | 2020-07-27 23:23 | NUR ---
RN NOTES: AT 2200 EXPLAINED TO HER WE NEED TO RE-CHECKED HER BLOOD SUGAR BECAUSE HER BLOOD SUGAR WAS 82 AT 2200; SHE REFUSED DESPITE EXPLANATION OF RISK AND BENEFITS, SHE SAID "PLEASE NO MORE NEEDLE PRICK I WANT TO SLEEP".WILL CONTINUE TO MONITOR FOR SIGN OF HYPER/HYPOGLYCEMIA.
[2020-07-28] VITALS: BP 158/80
--- NOTE | 2020-07-28 00:38 | NUR ---
RN NOTES; ABLE TO SLEEP AND REST, NO EPISODE OF VOMITING, KEPT ON CLOSE VISUAL CHECK.CALL LIGHT WITHIN EASY REACH.
[2020-07-28] MEDS: ONDANSETRON HCL/PF 4 MG/2 ML VIAL IVP PRN ×2 (01:17→22:18)
--- NOTE | 2020-07-28 01:18 | NUR ---
RN NOTES: 2ND TIME SHE VOMITED, SMALL AMOUNT AROUND 60CC, MORE OF FLUIDS, WATER WITH SMALL SOLID CONTENTS OF FOOD, ZOFRAN PRN FOR N/V OFFERED, SHE AGREE TO HAVE IT, CLEAN AND CHANGE.KEPT COMFORTABLE IN BED.
[2020-07-28 04:00] VITALS: BP 115/79
--- NOTE | 2020-07-28 04:06 | NUR ---
RN NOTES: 0300 SHE WAS AWAKE SHE HAS PERIOD OF VISUAL HALLUCINATION SHE WAS LOOKING FOR A PERSON NAME "c", SHE IS CALLING AND SHOUTING, SHE CRY IN BETWEEN, RN AND RADIOPHARMACIST ALTERNATE MONITORING HER AND ORIENT TO REALITY THAT SHE IS IN [facility].
--- NOTE | 2020-07-28 04:08 | NUR ---
RN NOTES: ABLE TO GO BACK TO SLEEP, V/S REMAIN WITHIN RANGE, NO COMPLAINTS OF PAIN OR DISCOMFORT.
[2020-07-28 06:28] LABS: BASOPHILS % (AUTO) 0.6 % (0.0-2.0); EOSINOPHILS % (AUTO) 0.3 % (0.0-6.0); HEMATOCRIT 34 % (33-45); HEMOGLOBIN 10.6 g/dL (11.5-14.8); LYMPHOCYTES # (AUTO) 0.5 /CMM (0.8-4.8); LYMPHOCYTES % (AUTO) 12.7 % (20.0-44.0); MEAN CORPUSCULAR HGB CONC 31 g/dl (31.0-36.0); MEAN CORPUSCULAR VOLUME 85 fL (82-100); MONOCYTES # (AUTO) 0.4 /CMM (0.1-1.30); MONOCYTES % (AUTO) 10.2 % (2.0-12.0); NEUTROPHILS % (AUTO) 76.2 % (43.0-81.0); PLATELET COUNT (AUTO) 198 /CMM (150-450); RED BLOOD CELL COUNT(AUTO) 4.03 MIL/uL (4.0-5.2); WHITE BLOOD COUNT (AUTO) 3.9 K/uL (4.3-11.0)
[2020-07-28 06:44] LABS: CREATININE 5.7 mg/dL (0.6-1.3); MAGNESIUM 2.5 mg/dL (1.8-2.4); PHOSPHORUS 6.1 mg/dL (2.5-4.9); POTASSIUM 5.1 mmol/L (3.5-5.1)
[2020-07-28 07:08] LABS: THYROID STIMULATING HORMONE 0.14 uIU/mL (0.358-3.74)
[2020-07-28] MEDS: BLOOD SUGAR DIAGNOSTIC 1 EACH STRIP VI SCH ×4 (07:43→21:48)
--- NOTE | 2020-07-28 07:46 | NUR ---
RN NOTES: ASLEEP IN THE NIGHT, BLOOD SUGAR CHECKED-95, NO MORE VOMITING IN THE MORNING, FOR BLOOD TEST THIS MORNING, PENDING PSYCH CONSULT,FOR SW REFERRAL,ENDORSED FOR CONTINUITY OF CARE.
--- NOTE | 2020-07-28 07:58 | NUR ---
RN OPENING NOTES: RECEIVED PT AWAKE IN BED. A/OX3. ROOM AIR, TELE MONITOR ST-115. FALL PRECAUTIONS. WITH LEFT BKA, PARAPLEGIA, CHE-AV GRAFT SHUNT, LAC G#18 HL. WILL CONTINUE TO MONITOR.
[2020-07-28 08:00] VITALS: BP 171/93
[2020-07-28] MEDS: SEVELAMER CARBONATE 800 MG TABLET PO SCH ×4 (08:28→18:00)
[2020-07-28] MEDS: ASPIRIN 81 MG TAB.CHEW PO SCH (08:28)
[2020-07-28] MEDS: PANTOPRAZOLE 40 MG TABLET.DR PO SCH (08:28)
[2020-07-28] MEDS: MIDODRINE HCL (5MG) 5 MG TABLET PO SCH ×2 (08:31→17:00)
[2020-07-28] MEDS: HEPARIN SODIUM, PORCINE 5000 UNITS/1 ML VIAL SQ SCH ×3 (08:36→21:50)
[2020-07-28] MEDS ORDERED: PANTOPRAZOLE 40 MG VIAL IV SCH (09:00)
[2020-07-28] MEDS: CEFTRIAXONE 1 G in IV D5W 50 ML IV SCH (13:00)
[2020-07-28 16:00] VITALS: BP 162/74
--- NOTE | 2020-07-28 16:13 | NUR ---
Per daughter Adalberto who lives in [facility] [phone], patient resides locally alone but has family members that come to assist patent everyday.Patient has also [facility] caregiver, has adequate DME - manual wheelchair,power wheelchair,hoyerlift and commode. She has currently homehealth services but cannot recall the name of the company. She receives hemodialysis every MWF at [facility] [phone]. Current dc plan is to return home. Patient will need transportation when discharge. Addendum: 07/28/20 at 1614 by VIDHYA PINTO RN Amended: Links added.
--- NOTE | 2020-07-28 18:02 | NUR ---
PT REFUSED RENVALA MEDICATION. STATED IT MAKES HER SLEEPY. I EXPLAINED THE IMPORTANCE OF THE MEDICATION AND PT EDUCATION. PT WAS ASKED THREE TIMES AND STILL REFUSED.
--- NOTE | 2020-07-28 18:45 | NUR ---
RN CLOSING NOTES PT AWAKE IN BED AT THIS, PT REMAINED STABLE THROUGH OUT SHIFT. ALL CARE, NEEDS, MEDICATIONS AND TREATMENT ADMINISTERED ANTICIPATED PER ORDER. SAFETY AND ASPIRATION PRECAUTIONS IN PLACE AND MAINTAINED AT ALL TIME. BED IN LOWEST LOCKED POSITION, SIDE RAILS UPX2, HOB ELEVATED, CALL LIGHT AND TABLE WITHIN REACH. WILL ENDORSE TO FURNACE CLERK NURSE F0R HARVEY
--- NOTE | 2020-07-28 18:47 | NUR ---
RN MS KEELY SPOKE WITH DAUGHTER (MERISSA) - SHE WAS VERY UPSET THAT NO ONE HAD CALLED HER BACK TODAY. 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 SHE STATED SHE CALLED NUMEROUS TIMES TODAY AND LEFT MESSAGES BUT NO ONE CALLED HER BACK. I DID NOT RECEIVE ANY MESSAGES FROM HER TODAY. MERISSA (DAUGHTER) WOULD LIKE TO BE CALLED FOR ANY MEDICATION CHANGES, WELL UPDATES. I LET HER KNOW THAT THE PSYCHIATRIST WANTS TO PUT HER ON ZYPREXA. SHE WOULD LIKE THE CATERING ASSISTANT NURSE TO GIVE HER A CALL BEFORE SHE GIVES IT. MERISSA'S NUMBER: [phone]. WRITTEN ON SHIFT REPORT WELL. WILL ENDORSE TO CATERING ASSISTANT NURSE.
[2020-07-28 20:00] VITALS: BP 167/85
--- NOTE | 2020-07-28 20:08 | NUR ---
MS RN OPENING NOTES PATIENT IN BED, A/OX2, WITH CONFUSION. ON ROOM AIR, TOLERATING WELL WITH NO SOB. DENIES PAIN OR DISCOMFORT AT THIS TIME. LAC IV #18G; PATENT AND INTACT. SAFETY PRECAUTIONS IN PLACE: BED IN LOWEST LOCKED POSITION; SIDERAILS UPX2; CALL LIGHT WITHIN REACH. BED ALARMS ON. PATIENT MEDICALLY STABLE.
--- NOTE | 2020-07-28 20:45 | NUR ---
MS RN NOTES CALLED MERISSA (DAUGHTER) AND UPDATED HER ON PATIENTS CURRENT CONDITION. NOTIFIED HER THAT PATIENT WILL BE GIVEN ZYPREXA ORDERED. MERISSA VERBALIZED UNDERSTANDING.
[2020-07-28] MEDS: OLANZAPINE ZYDIS 5 MG TAB.RAPDIS PO SCH (21:45)
[2020-07-28] MEDS: ATORVASTATIN 10 MG TABLET PO SCH (21:45)
[2020-07-28] MEDS: INSULIN GLARGINE, 100 UNIT/ML CARTRIDGE SQ SCH (21:49)
[2020-07-28] MEDS: *INSULIN REGULAR(HUMULIN R)HUM 100 UNIT/ML VIAL SQ PRN (21:51)
--- NOTE | 2020-07-28 22:18 | NUR ---
MS RN NOTES - NAUSEA PATIENT EXPRESSED SHE FELT NAUSEAS. NO EMESIS OR VOMITING NOTED. ADMINISTERED ZOFRAN ORDERED.
--- NOTE | 2020-07-29 04:38 | NUR ---
MS RN NOTES ATTEMPTED TO REINSERT IV AND COLLECTED URINE SPECIMEN FOR URINE CULTURE. PATIENT REFUSED X3, EDUCATED THE PATIENT THE IMPORTANCE. MARLI CHARGE NURSE AWARE.
--- NOTE | 2020-07-29 05:05 | NUR ---
MS RN NOTES PATIENT NOT BEING COOPERATIVE, REFUSED ADL'S, NOTED WITH CONFUSION AND AGITATION, YELLING "WHY ARE YOU DOING THIS TO ME TIMBO". PATIENT GRABBED ONTO RN'S FOREARM TIGHTLY WITH 2 HANDS. CALMING INTERVENTIONS DONE. WILL CONTINUE TO MONITOR PATIENT'S BEHAVIOR
--- NOTE | 2020-07-29 06:23 | NUR ---
MS RN NOTES - BLOOD SUGAR PATIENT NOTED WITH BLOOD SUGAR OF 63. OFFERED JUICE TO PATIENT BUT PATIENT REFUSED. NOTED WITH AGITATION. ADMINISTERED D50 AND WILL ASSESS D50 PER PROTOCOL.
[2020-07-29] MEDS: BLOOD SUGAR DIAGNOSTIC 1 EACH STRIP VI SCH ×4 (06:46→21:51)
[2020-07-29] MEDS: INSULIN REGULAR, HUMAN 100 UNIT/ML 3 ML VIAL SQ PRN (06:46)
--- NOTE | 2020-07-29 06:53 | NUR ---
MS RN NOTES - BLOOD SUGAR PATIENT SHOWS NO S/S OF HYPOGLYCEMIA. BLOOD SUGAR IS 129 .
--- NOTE | 2020-07-29 07:08 | NUR ---
MS RN CLOSING NOTES PATIENT IN BED, A/OX1, WITH CONFUSION. ON ROOM AIR, TOLERATING WELL WITH NO SOB. DENIES PAIN OR DISCOMFORT AT THIS TIME. LAC IV #18G; PATENT AND INTACT. SAFETY PRECAUTIONS IN PLACE: BED IN LOWEST LOCKED POSITION; SIDERAILS UPX2; CALL LIGHT WITHIN REACH. BED ALARMS ON. PATIENT MEDICALLY STABLE. WILL ENDORSE HARVEY TO ONCOMING MORNING RN.
[2020-07-29 07:53] LABS: BASOPHILS % (AUTO) 0.7 % (0.0-2.0); EOSINOPHILS % (AUTO) 0.7 % (0.0-6.0); HEMATOCRIT 34 % (33-45); HEMOGLOBIN 10.5 g/dL (11.5-14.8); LYMPHOCYTES # (AUTO) 0.7 /CMM (0.8-4.8); MEAN CORPUSCULAR HGB CONC 31 g/dl (31.0-36.0); MEAN CORPUSCULAR VOLUME 85 fL (82-100); MONOCYTES # (AUTO) 0.6 /CMM (0.1-1.30); MONOCYTES % (AUTO) 12.8 % (2.0-12.0); NEUTROPHILS # (AUTO) 3.5 /CMM (1.8-8.9); NEUTROPHILS % (AUTO) 70.8 % (43.0-81.0); PLATELET COUNT (AUTO) 230 /CMM (150-450)
[2020-07-29 08:00] VITALS: BP 154/99
--- NOTE | 2020-07-29 08:00 | NUR ---
RN OPENING NOTE PT IS RESTING IN BED. AROUSABLE TO LIGHT TOUCH. A/O X3 NO COMPLAINT OF PAIN OR NAUSEA. ON RA WITH NO SOB OR RESPIRATORY DISTRESS PRESENT. RLE EDEMA P[RESENT. ON BEDREST. L BKA PRESENT.L AC 18 G PRESENT. SAFETY MEASURES IN PLACE. SIDE RAILS RAISED. BED LOWERED. CALL LIGHT WITHIN REACH. WILL CONTINUE TO MONITOR.
[2020-07-29 08:18] LABS: CALCIUM, SERUM 8.7 mg/dL (8.5-10.1); MAGNESIUM 2.6 mg/dL (1.8-2.4); PHOSPHORUS 6.7 mg/dL (2.5-4.9); POTASSIUM 5.1 mmol/L (3.5-5.1)
[2020-07-29 08:26] LABS: CREATININE 7.9 mg/dL (0.6-1.3)
[2020-07-29] MEDS: SEVELAMER CARBONATE 800 MG TABLET PO SCH ×3 (08:57→17:07)
[2020-07-29] MEDS: ASPIRIN 81 MG TAB.CHEW PO SCH (08:58)
[2020-07-29] MEDS: MIDODRINE HCL (5MG) 5 MG TABLET PO SCH ×2 (08:58→17:00)
[2020-07-29] MEDS: PANTOPRAZOLE 40 MG TABLET.DR PO SCH (08:59)
[2020-07-29] MEDS: HEPARIN SODIUM, PORCINE 5000 UNITS/1 ML VIAL SQ SCH ×2 (09:00→21:38)
--- NOTE | 2020-07-29 12:08 | NUR ---
RN NOTE PT REFUSE 1200 BLOOD SUGAR CHECK. WILL MONITOR FOR HYPERGLYCEMIA.
[2020-07-29] MEDS: CEFTRIAXONE 1 G in IV D5W 50 ML IV SCH (13:25)
[2020-07-29 16:00] VITALS: BP 171/95
[2020-07-29 17:33] VITALS: BP 171/95
--- NOTE | 2020-07-29 17:39 | NUR ---
DOOR ASSEMBLER HELD MIDODRINE HELD DUE TO HIGH BLOOD PRESSURE. 171/94, OK OF 90. WILL CONTINUE TO MONITOR
--- NOTE | 2020-07-29 18:26 | NUR ---
RN CLOSING NOTE PT IS AWAKE IN BED RESTING. A/O X3 WITH PERIODS OF CONFUSION. ON RA WITH NO SOB OR RESPIRATORY DISTRESS PRESENT. NO EDEMA PRESENT. ON BEDREST. SKIN IS INTACT. L BELOW THE KNEE AMPUTATION PRESENT. ON RENAL DIET. ROUTINE MEDS GIVEN. SIDE RAILS RAISED. BED LOWERED. CALL LIGHT WITHIN REACH. REPORT TO BE GIVEN TO NIGHT NURSE FOR HARVEY.
--- NOTE | 2020-07-29 19:30 | NUR ---
MS/RN OPENING NOTES RECEIVED PATIENT RESTING IN BED. PATIENT IS ALERT AND ORIENTED X 3. PATIENTS BREATHING IS EVEN AND UNLABORED. PATIENT SHOWS NO SIGNS OF SOB OR RESPIRATORY DISTRESS. PATIENT STATES NO PAIN AT THIS TIME. IV ACCESS LEFT AC INTACT FLUSHING WELL, R UA AV FISTULA INTACT. SAFETY MEASURES ARE IN PLACE, BED IS LOCKED AND PLACED IN THE LOW POSITION, SIDE RAILS UP X 2, CALL LIGHT IS WITHIN REACH. WILL CONTINUE TO MONITOR THROUGH OUT SHIFT.
[2020-07-29 20:00] VITALS: BP 166/74
[2020-07-29] MEDS: ATORVASTATIN 10 MG TABLET PO SCH (21:34)
[2020-07-29] MEDS: OLANZAPINE ZYDIS 5 MG TAB.RAPDIS PO SCH (21:34)
[2020-07-29] MEDS: INSULIN GLARGINE, 100 UNIT/ML CARTRIDGE SQ SCH (22:00)
--- NOTE | 2020-07-30 06:40 | NUR ---
MS/RN CLOSING NOTES PATIENT RESTING IN BED. PATIENT IS ALERT AND ORIENTED X 2-3. PATIENTS BREATHING IS EVEN AND UNLABORED. PATIENT SHOWS NO SIGNS OF SOB OR RESPIRATORY DISTRESS. IV ACCESS LEFT AC INTACT FLUSHING WELL, R UA AV FISTULA INTACT. ALL NEEDS HAVE BEEN MET. SAFETY MEASURES ARE IN PLACE, BED IS LOCKED AND PLACED IN THE LOW POSITION, SIDE RAILS UP X 2, CALL LIGHT IS WITHIN REACH. WILL ENDORSE CARE TO DAY SHIFT NURSE.
[2020-07-30 06:59] LABS: EOSINOPHILS % (AUTO) 1.8 % (0.0-6.0); HEMATOCRIT 36 % (33-45); HEMOGLOBIN 10.7 g/dL (11.5-14.8); LYMPHOCYTES # (AUTO) 0.8 /CMM (0.8-4.8); LYMPHOCYTES % (AUTO) 18.3 % (20.0-44.0); MEAN CORPUSCULAR HGB CONC 30 g/dl (31.0-36.0); MEAN CORPUSCULAR VOLUME 87 fL (82-100); MONOCYTES # (AUTO) 0.6 /CMM (0.1-1.30); MONOCYTES % (AUTO) 13.6 % (2.0-12.0); NEUTROPHILS # (AUTO) 2.8 /CMM (1.8-8.9); NEUTROPHILS % (AUTO) 65.3 % (43.0-81.0); PLATELET COUNT (AUTO) 206 /CMM (150-450); RED BLOOD CELL COUNT(AUTO) 4.09 MIL/uL (4.0-5.2); WHITE BLOOD COUNT (AUTO) 4.3 K/uL (4.3-11.0)
[2020-07-30 07:37] LABS: CALCIUM, SERUM 8.8 mg/dL (8.5-10.1); MAGNESIUM 2.8 mg/dL (1.8-2.4); PHOSPHORUS 7.2 mg/dL (2.5-4.9); POTASSIUM 4.6 mmol/L (3.5-5.1)
[2020-07-30 07:41] LABS: CREATININE 9.4 mg/dL (0.6-1.3)
[2020-07-30] MEDS: BLOOD SUGAR DIAGNOSTIC 1 EACH STRIP VI SCH ×4 (07:45→22:43)
[2020-07-30 07:51] VITALS: BP 135/68
--- NOTE | 2020-07-30 08:00 | NUR ---
RN OPENING NOTE PT IS AWAKE IN BED RESTING. A/O X3 AND SPEAKS ALGERIAN. SOME PERIODS OF CONFUSION/HALLUCINATION PRESENT. NO COMPLAIN OF PAIN OR NAUSEA. ON RA. NO SOB OR RESPIRATORY DISTRESS PRESENT. ON BEDREST. SKIN IS INTACT. NO EDEMA PRESENT. L BELOW THE KNEE AMPUTATION PRESENT. HL PRESENT IN L AC 18 AND FLUSHES WELL. R UA AV FISTULA PRESENT. SAFETY MEASURES IN PLACE. SIDE RAILS RAISED. BED LOWERED. CALL LIGHT WITHIN REACH. WILL CONTINUE TO MONITOR.
[2020-07-30] MEDS: ASPIRIN 81 MG TAB.CHEW PO SCH (08:15)
[2020-07-30] MEDS: SEVELAMER CARBONATE 800 MG TABLET PO SCH ×3 (08:15→17:23)
[2020-07-30] MEDS: PANTOPRAZOLE 40 MG TABLET.DR PO SCH (08:15)
[2020-07-30] MEDS: MIDODRINE HCL (5MG) 5 MG TABLET PO SCH ×2 (08:16→17:24)
[2020-07-30] MEDS: HEPARIN SODIUM, PORCINE 5000 UNITS/1 ML VIAL SQ SCH ×2 (08:20→22:42)
--- NOTE | 2020-07-30 09:30 | NUR ---
RN NOTE PT COMPLAINT OF NAUSEA. NO EPISODES OF VOMITTING. ZOFRAN ADMINISTERED. WILL CONTINUE TO MONITOR.
[2020-07-30] MEDS: ONDANSETRON HCL/PF 4 MG/2 ML VIAL IVP PRN ×2 (09:35→19:02)
[2020-07-30] MEDS: CEFTRIAXONE 1 G in IV D5W 50 ML IV SCH (13:38)
--- NOTE | 2020-07-30 15:05 | NUR ---
Solder Deposit Operator Consult: Solder Deposit Operator consult requested for alleged self-medicating. Patient is a 64-year-old, -Malagasy female who was admitted to telemetry unit. Per chart, patient was brought in due to being more altered than usual during her regular dialysis treatment. SW met with the patient and discussed resources and discharge plan. Patient was alert and oriented x4. Patient was well-groomed. Patient stated that she lives with a roommate named David and stated that she felt off after taking the [place]. Patient stated that she has been taking pain medication which includes Xanax and Percocet for body pain. Patient stated that she obtained [place] from someone on the streets. Patient stated that she made a mistake and understood after speaking to her daughter that taking unprescribed medications was dangerous; she mentioned that her daughter is an RN and she discusses her health with her daughter often. Patient stated that she has adequate social support from her friend David, her daughter and a nurse who comes to visit her a few times a week. Patient denies any history of alcohol or substance use. Patient stated she will be returning to her prior living arrangement at her home. SW discussed resources for substance abuse treatment, and patient was receptive. Patient was provided with an Addiction Resources for Drugs and Alcohol. Substance Abuse resources provided included: [facility] Substance Abuse Self-Helpline ([facility]) ; [facility] [address] [facility]. [place] [id number] ; [facility] [address] [facility] [address] ; [facility] Rehabilitation Program [address] [facility] [address] ; [facility] [address] [facility] [address] ; [facility] [address] [facility] [address] ; [facility] [place] [address] [facility] [address] ; [facility] Substance Abuse Helpline([facility])-[facility] ; [facility] ; [facility] Center Line; [facility] [place]; [facility] [place]; [facility] [place]; [facility] [place]; [facility] [place]; [facility] [place]; [facility], [facility]. [facility]; Alcoholics Anonymous [facility]; [facility] ; Marijuana Anonymous [facility]; Narcotics Anonymous www.na.org;
[2020-07-30 16:00] VITALS: BP 142/89
[2020-07-30] MEDS: INSULIN REGULAR, HUMAN 100 UNIT/ML 3 ML VIAL SQ PRN (17:21)
--- NOTE | 2020-07-30 18:35 | NUR ---
RN CLOSING NOTE PT IS AWAKE IN BED. A/O X3 AND SPEAKS CONGOLESE. SOME PERIODS OF CONFUSION/HALLUCINATIONS PRESENT. NO COMPLAINT OF PAIN OR NAUSEA. CURRENTLY ON RA WITH NO SOB OR RESPIRATORY DISTRESS. ON BEDREST. L BKA PRESENT. NO EDEMA PRESENT. HL PRESENT ON L AC, 18G. AV FISTULA PRESENT ON R UA. LAST H/D WAS 07/30. ROUTINE MEDS GIVEN. SAFETY MEASURES IN PLACE. SIDE RAILS RAISED. BED LOWERED. CALL LIGHT WITHIN REACH. REPORT TO BE GIVEN TO NIGHT NURSE FOR HARVEY.
[2020-07-30] MEDS: ACETAMINOPHEN 325 MG TABLET PO PRN (19:01)
[2020-07-30 20:00] VITALS: BP 156/87
--- NOTE | 2020-07-30 21:07 | NUR ---
MS/TELE/RN DURING INITIAL ROUNDING, RECEIVED PATIENT PATIENT ON BED AWAKE, ALERT, ORIENTED, COMFORTABLE, NO C/O PAIN, NO DISTRESS NOTED, CALL LIGHT IN REACH, FALL PRECAUTIONS PER PROTOCOL, WILL MONITOR.
[2020-07-30] MEDS: INSULIN GLARGINE, 100 UNIT/ML CARTRIDGE SQ SCH (22:00)
[2020-07-30] MEDS: OLANZAPINE ZYDIS 5 MG TAB.RAPDIS PO SCH (22:42)
[2020-07-30] MEDS: ATORVASTATIN 10 MG TABLET PO SCH (22:42)
--- NOTE | 2020-07-30 23:16 | NUR ---
MS/TELE/RN PATIENT IS AWAKE ALERT, ORIENTED, NO CHANGE IN CONDITION, ENDORSED TO FRANCO NEVAREZ, FOR CONTINUITY OF CARE.
--- NOTE | 2020-07-30 23:21 | NUR ---
MS/TELE/RN LANTUS 20 UNITS NOT GIVEN, BLOOD SUGAR WAS 51.
[2020-07-30] MEDS ORDERED: ALPRAZOLAM 1 MG TABLET PO PRN (23:30)
--- NOTE | 2020-07-30 23:30 | NUR ---
RN opening notes Received Pt from FRANCO Forrester. Pt is sitting in bed comfortably eating a snacks. Pt is alert and orientedX3. Respiration is normal in room air. No SOB. No S/S of distress noted. IV site at MAURICIO# 18 is clean, intact and SL. CHE AV fistula is clean, intact and dry. Safety precautions is maintained. Bed at low position, brakes locked, side rails upX2 and call light is within reach. Will continue to monitor.
--- NOTE | 2020-07-30 23:38 | NUR ---
RN notes Pt is feeling anxious and requesting meds. Administered xanax 1 mg/ 2 tabs/po/prn as ordered. Safety precautions is maintained. Will continue to monitor.
[2020-07-31] MEDS ORDERED: oxyCODONE/APAP (5/325 MG) 1 UDTAB TABLET PO PRN (00:30)
--- NOTE | 2020-07-31 01:19 | NUR ---
RN notes Pt is complaining of pain on L and R hip 10/10 on pain scale. Administered percocet 2 tabs as ordered for pain per pt's requested. Safety precautions is maintained. Will continue to monitor.
[2020-07-31] MEDS: BLOOD SUGAR DIAGNOSTIC 1 EACH STRIP VI SCH ×3 (06:42→18:25)
[2020-07-31] MEDS: INSULIN REGULAR, HUMAN 100 UNIT/ML 3 ML VIAL SQ PRN (06:43)
--- NOTE | 2020-07-31 06:49 | NUR ---
RN closing notes Pt is resting in bed comfortably. Pt is alert and orientedX3. Respiration is normal in room air. No SOB. No S/S of distress noted. VS is stable. Afebrile. IV site at MAURICIO# 18 is clean, intact and SL. CHE AV fistula is clean, intact and dry. Kept Pt clean, dry and comfortable. All needs met and attended. Safety precautions is maintained. Bed at low position, brakes locked, side rails upX2 and call light is within reach. Will endorse to morning nurse for HARVEY.
[2020-07-31 07:24] LABS: BASOPHILS % (AUTO) 0.6 % (0.0-2.0); EOSINOPHILS % (AUTO) 2.6 % (0.0-6.0); HEMATOCRIT 34 % (33-45); HEMOGLOBIN 10.6 g/dL (11.5-14.8); MEAN CORPUSCULAR HGB CONC 31 g/dl (31.0-36.0); MEAN CORPUSCULAR VOLUME 87 fL (82-100); MONOCYTES # (AUTO) 0.6 /CMM (0.1-1.30); MONOCYTES % (AUTO) 14.8 % (2.0-12.0); NEUTROPHILS # (AUTO) 2.1 /CMM (1.8-8.9); PLATELET COUNT (AUTO) 195 /CMM (150-450); RED BLOOD CELL COUNT(AUTO) 3.92 MIL/uL (4.0-5.2); WHITE BLOOD COUNT (AUTO) 3.8 K/uL (4.3-11.0)
--- NOTE | 2020-07-31 07:30 | NUR ---
RN MS NOTES PT IN BED, AWAKE, ALERT AND ORIENTED, WITH COMPLAINT OF HEADACHE, NOT IN DISTRESS, CALL LIGHT WITHIN REACH, KEPT COMFORTABLE, NEEDS ATTENDED.
[2020-07-31 07:36] LABS: CALCIUM, SERUM 8.8 mg/dL (8.5-10.1); MAGNESIUM 2.5 mg/dL (1.8-2.4); PHOSPHORUS 6.3 mg/dL (2.5-4.9); POTASSIUM 4.3 mmol/L (3.5-5.1)
[2020-07-31 07:44] LABS: CREATININE 7.5 mg/dL (0.6-1.3)
[2020-07-31] MEDS: ASPIRIN 81 MG TAB.CHEW PO SCH (08:28)
[2020-07-31] MEDS: SEVELAMER CARBONATE 800 MG TABLET PO SCH ×3 (08:28→17:54)
[2020-07-31] MEDS: ACETAMINOPHEN 325 MG TABLET PO PRN (08:28)
[2020-07-31] MEDS: PANTOPRAZOLE 40 MG TABLET.DR PO SCH (08:28)
[2020-07-31] MEDS: HEPARIN SODIUM, PORCINE 5000 UNITS/1 ML VIAL SQ SCH (08:36)
[2020-07-31] MEDS: MIDODRINE HCL (5MG) 5 MG TABLET PO SCH ×2 (08:49→17:00)
--- NOTE | 2020-07-31 08:50 | NUR ---
RN MS NOTES MIDODRINE NOT GIVEN, BP 170/76.
[2020-07-31 09:56] LABS: EOSINOPHILS % (MANUAL) 2 % (0-4); LYMPHOCYTES % (MANUAL) 27 % (16-48); MONOCYTES % (MANUAL) 17 % (0-11.0)
[2020-07-31 09:57] LABS: NEUTROPHILS % (MANUAL) 54 (42-76)
--- NOTE | 2020-07-31 11:55 | NUR ---
RN NOTES BLOOD SUGAR BY FINGERSTICK - 106. NO INSULIN GIVEN.
[2020-07-31] MEDS ORDERED: NA PHOS,M-B/NA PHOS,DI-BA 1 EA ENEMA RC PRN (12:00)
[2020-07-31] MEDS: CEFTRIAXONE 1 G in IV D5W 50 ML IV SCH (14:00)
[2020-07-31] MEDS ORDERED: OLAN5TAB6 PO (14:11)
[2020-07-31] MEDS ORDERED: CEPH500C2 PO (14:11)
[2020-07-31] MEDS ORDERED: ATOR10TA PO (14:11)
[2020-07-31] MEDS ORDERED: ASPI-1169 PO (14:11)
[2020-07-31] MEDS ORDERED: PANT40TA2 PO (14:11)
--- NOTE | 2020-07-31 17:02 | NUR ---
RN MS NOTES MIDODRINE NOT GIVEN, BP 147/79 HR 85.
--- NOTE | 2020-07-31 18:21 | NUR ---
RN MS NOTES PT IN BED, AWAKE, ALERT AND ORIENTED, NO COMPLAINT OF PAIN, BREATHING PATTERN NORMAL, SEEN BY DR. VILLALOBOS AND DR. MICHAELS, DISCHARGE ORDER GIVEN BY MD, PT INFORMED, DISCHARGE AND MEDICATION INSTRUCTIONS PROVIDED TO PT, VERBALIZED UNDERSTANDING, NEW PRESCRIPTION GIVEN TO PT, BELONGINGS ACCOUNTED FOR, AMBULANCE MEAL MILLER TIME IS 1900, PT INFORMED AND AGREED.
--- NOTE | 2020-07-31 19:30 | NUR ---
MSRN PATIENT IS DISCHARGE AWAITING FOR AMBULANCE. DENIES ANY DISCOMFORTS, EAGER TO GO HOME
[2020-07-31 20:00] VITALS: BP 155/75
--- NOTE | 2020-07-31 21:55 | NUR ---
Lona JORDAN TAKEN OUT. DISCHARGE TO HOME VIA AMBULANCE WITH ALL PERSONAL BELONGINGS IN SATISFACTORY CONDITION.
== END 2020-07-31 21:55 | disposition home health service (06) | DRG 917 ==
LOC: ER 09:19 → MED 11:43 → TELE 13:50 → MED 07-28 08:19
PROVIDERS: ADMIT Registered Nurse; ATTEND Nurse Practitioner Acute Care
PROC: 5A1D70Z Performance of Urinary Filtration, Intermittent, Less than 6 Hours Per Day (ICD-10-PCS; principal; 2020-07-30)
DX: T42.4X1A Poisoning by benzodiazepines, accidental (unintentional), initial encounter (principal); N18.6 End stage renal disease; G92 Toxic encephalopathy; I13.2 Hypertensive heart and chronic kidney disease with heart failure and with stage 5 chronic kidney disease, or end stage renal disease; N39.0 Urinary tract infection, site not specified; F19.239 Other psychoactive substance dependence with withdrawal, unspecified; Z68.41 Body mass index [BMI] 40.0-44.9, adult; G82.20 Paraplegia, unspecified; E87.70 Fluid overload, unspecified; I50.9 Heart failure, unspecified; E11.22 Type 2 diabetes mellitus with diabetic chronic kidney disease; D63.1 Anemia in chronic kidney disease; Z99.2 Dependence on renal dialysis; Z89.512 Acquired absence of left leg below knee; Z79.4 Long term (current) use of insulin; Z79.899 Other long term (current) drug therapy; B96.89 Other specified bacterial agents as the cause of diseases classified elsewhere; Z86.73 Personal history of transient ischemic attack (TIA), and cerebral infarction without residual deficits; E66.01 Morbid (severe) obesity due to excess calories; D63.8 Anemia in other chronic diseases classified elsewhere; N25.0 Renal osteodystrophy; Z87.828 Personal history of other (healed) physical injury and trauma; F39 Unspecified mood [affective] disorder; I67.2 Cerebral atherosclerosis; I70.8 Atherosclerosis of other arteries; K42.9 Umbilical hernia without obstruction or gangrene; M77.9 Enthesopathy, unspecified; F29 Unspecified psychosis not due to a substance or known physiological condition; T40.2X1A Poisoning by other opioids, accidental (unintentional), initial encounter; Y92.009 Unspecified place in unspecified non-institutional (private) residence as the place of occurrence of the external cause
CPT/HCPCS: 36415; 70450-TC; 71045-TC; 80048-TC; 80061-TC; 80076-TC; 81001; 82140-TC; 82962-TC; 83735-TC; 84100-TC; 84439-TC; 84443-TC; 84484-TC; 85025-TC; 87040-TC; 87081-TC; 90935-TC; 93307-TC; 94799-TC; 97112-TC; G0378; G0480; J0696; J1644; J1815; J2060; J2405; J7050; J7060; Q0162

== ENCOUNTER 2020-12-26 15:13 | Emergency (ER) | payer MEDICARE, OTHER ==
[~2020-12-26] VITALS: Ht 162.6 cm; Wt 92.5 kg
[~2020-12-26 15:13] MED LIST changes: +ASPI-1169 PO; +ATOR10TA PO; +CEPH500C2 PO; -DULO20CA19 PO; -GABA600T12 PO; +OLAN5TAB6 PO; +PANT40TA2 PO; -RXVAN XX
--- NOTE | 2020-12-26 15:26 | NUR ---
TO ER BED 3, C/O VAGINAL DISCHARGE/BLOOD IN STOOL FOR WEEKS, AT BEDSIDE
--- NOTE | 2020-12-26 15:27 | NUR ---
SALINE LOCK ESTABLISHED, BLOOD DRAWN AND SENT TO LAB
[2020-12-26 15:49] LABS: BASOPHILS % (AUTO) 0.6 % (0.0-2.0); EOSINOPHILS % (AUTO) 4.5 % (0.0-6.0); HEMATOCRIT 29 % (33-45); LYMPHOCYTES # (AUTO) 0.7 K/uL (0.8-4.8); LYMPHOCYTES % (AUTO) 8.5 % (20.0-44.0); MEAN CORPUSCULAR HGB CONC 31 g/dl (31.0-36.0); MEAN CORPUSCULAR VOLUME 83 fL (82-100); MONOCYTES # (AUTO) 0.4 K/uL (0.1-1.30); MONOCYTES % (AUTO) 5.4 % (2.0-12.0); NEUTROPHILS # (AUTO) 6.7 K/uL (1.8-8.9); PLATELET COUNT (AUTO) 366 K/uL (150-450); RED BLOOD CELL COUNT(AUTO) 3.49 MIL/uL (4.0-5.2); WHITE BLOOD COUNT (AUTO) 8.3 K/uL (4.3-11.0)
--- NOTE | 2020-12-26 16:00 | NUR ---
US AT BEDSIDE
[2020-12-26 16:02] LABS: ALBUMIN 2.1 g/dL (3.4-5.0); BILIRUBIN,DIRECT 0.2 mg/dL (0.0-0.2); BILIRUBIN,TOTAL 0.5 mg/dL (0.2-1.0); POTASSIUM 4.2 mmol/L (3.5-5.1)
--- NOTE | 2020-12-26 16:09 | NUR ---
TAKEN TO CT
[2020-12-26 16:19] LABS: CREATININE 3.4 mg/dL (0.6-1.3); TOTAL PROTEIN, SERUM 8.5 g/dL (6.4-8.2)
--- NOTE | 2020-12-26 16:29 | NUR ---
STOOL SAMPLE SENT TO THE LAB
[2020-12-26 17:20] LABS: OCCULT BLOOD STOOL NEGATIVE (NEGATIVE)
--- NOTE | 2020-12-26 17:46 | NUR ---
TRANSPORT CALLED MARCIO SUAREZ OF 45 MINS.
--- NOTE | 2020-12-26 18:25 | NUR ---
REPORT GIVEN TO EMT FOR HARVEY/TRANSPORT BACK HOME
[2020-12-26 18:43] VITALS: BP 104/60
== END 2020-12-26 18:52 | disposition home or self-care (01) ==
LOC: ER 15:17
DX: N89.8 Other specified noninflammatory disorders of vagina (principal); E11.22 Type 2 diabetes mellitus with diabetic chronic kidney disease; N18.6 End stage renal disease; Z99.2 Dependence on renal dialysis; Z98.890 Other specified postprocedural states; Z60.2 Problems related to living alone; Z79.899 Other long term (current) drug therapy; Z79.4 Long term (current) use of insulin
CPT/HCPCS: 36415; 76856-TC; 80048-TC; 80076-TC; 82272-TC; 85025-TC; 85730-TC

== ENCOUNTER 2022-04-06 09:55 | Inpatient (IN) | payer MEDICARE, OTHER ==
[~2022-04-06] VITALS: Ht 162.6 cm; Wt 81.6 kg
--- NOTE | 2022-04-06 09:58 | NUR ---
CALVIN 881 FROM HOME W/ C/O BACK PAIN S/P GLF, "FOUND BY PLASTIC MANAGER FACE DOWN". TO ER BED 11.
--- NOTE | 2022-04-06 10:00 | NUR ---
PT SEEN BY DR KEYES AT BEDSIDE
--- NOTE | 2022-04-06 10:15 | NUR ---
IV LINE ESTABLISHED ON RFA #20, BLOOD DRAWN AND COLLECTED BY PHLEB AT BEDSIDE.
--- NOTE | 2022-04-06 10:19 | NUR ---
PT W/ LCW PERMACATH. PT STATES SHE HAS DIALYSIS Q-MWF, LAST DIALYSIS Thursday04/04/22. UNABLE TO OBTAIN URINE PT IS ANURIC.
[2022-04-06 10:25] LABS: BASOPHILS % (AUTO) 0.9 % (0.0-2.0); EOSINOPHILS % (AUTO) 5.7 % (0.0-6.0); HEMATOCRIT 27 % (33-45); HEMOGLOBIN 8.1 g/dL (11.5-14.8); LYMPHOCYTES # (AUTO) 0.8 K/uL (0.8-4.8); LYMPHOCYTES % (AUTO) 17.7 % (20.0-44.0); MEAN CORPUSCULAR HGB CONC 31 g/dl (31.0-36.0); MEAN CORPUSCULAR VOLUME 84 fL (82-100); MONOCYTES # (AUTO) 0.4 K/uL (0.1-1.30); MONOCYTES % (AUTO) 9.3 % (2.0-12.0); NEUTROPHILS # (AUTO) 2.9 K/uL (1.8-8.9); NEUTROPHILS % (AUTO) 66.4 % (43.0-81.0); PLATELET COUNT (AUTO) 181 K/uL (150-450); RED BLOOD CELL COUNT(AUTO) 3.14 MIL/uL (4.0-5.2); WHITE BLOOD COUNT (AUTO) 4.3 K/uL (4.3-11.0)
--- NOTE | 2022-04-06 10:29 | NUR ---
PT TAKEN TO RADIOLOGY FOR CT
[2022-04-06 10:43] LABS: ALANINE AMINOTRANSFERASE 16 U/L (12-78); ALBUMIN 3.1 g/dL (3.4-5.0); ALKALINE PHOSPHATASE 145 U/L (46-116); ASPARTATE AMINOTRANSFERASE 15 U/L (15-37); BILIRUBIN,DIRECT 0.2 mg/dL (0.0-0.2); BILIRUBIN,TOTAL 0.4 mg/dL (0.2-1.0); CALCIUM, SERUM 8.6 mg/dL (8.5-10.1); CARBON DIOXIDE 28 mmol/L (21-32); CREATININE 4.9 mg/dL (0.6-1.3); GLUCOSE 118 mg/dL (74-106); POTASSIUM 3.8 mmol/L (3.5-5.1); SODIUM SERUM 143 mmol/L (136-145); TOTAL PROTEIN, SERUM 7.2 g/dL (6.4-8.2); UREA NITROGEN, BLOOD 25 mg/dL (7-18)
--- NOTE | 2022-04-06 11:47 | NUR ---
COVID SWAB COLLECTED AND SENT TO LAB
--- NOTE | 2022-04-06 12:02 | NUR ---
MOVE SHEET SUBMITTED.
[2022-04-06] MEDS ORDERED: CHOL500052 PO (12:40)
[2022-04-06] MEDS ORDERED: GABA-532 PO (12:40)
[2022-04-06] MEDS ORDERED: AMLO-212 PO (12:40)
[2022-04-06] MEDS ORDERED: HYDR-500 PO (12:40)
[2022-04-06] MEDS ORDERED: PANT40TA2 PO (12:40)
[2022-04-06] MEDS ORDERED: HYDR-3980 PO (12:40)
[2022-04-06] MEDS ORDERED: SEVE800T28 PO (12:40)
[2022-04-06] MEDS ORDERED: FLUT16SP16 (12:40)
[2022-04-06] MEDS ORDERED: DICL100G34 TP (12:43)
--- NOTE | 2022-04-06 13:04 | NUR ---
[facility] PAGED
--- NOTE | 2022-04-06 14:59 | NUR ---
ROOM 327-1
[2022-04-06] MEDS ORDERED: DEXTROSE 50%-WATER 50 ML DISP.SYRIN IV PRN (15:00)
[2022-04-06] MEDS ORDERED: MAGNESIUM HYDROXIDE 30 ML UDC PO PRN (15:00)
[2022-04-06] MEDS ORDERED: MAG HYDROX/AL HYDROX/SIMETH 30 ML UDC PO PRN (15:00)
[2022-04-06] MEDS ORDERED: ALPRAZOLAM 1 MG TABLET PO PRN (15:00)
[2022-04-06] MEDS ORDERED: ONDANSETRON HCL/PF 4 MG/2 ML VIAL IVP PRN (15:00)
[2022-04-06] MEDS ORDERED: DICLOFENAC TOPICAL 100 GM GEL..GM. TP PRN (15:00)
[2022-04-06] MEDS ORDERED: Z GUARD REMEDY 4 OZ OINT TP PRN (15:00)
[2022-04-06] MEDS ORDERED: HYDROCODONE/APAP 10/325MG TABLET PO PRN (15:00)
--- NOTE | 2022-04-06 15:02 | NUR ---
FRANCO RODRIGUEZ FOR REPORT; CURRENTLY AT LUNCH RIGHT NOW
--- NOTE | 2022-04-06 15:48 | NUR ---
PT REPORT GIVEN TO FRANCO RODRIGUEZ
[2022-04-06] MEDS ORDERED: ERGOCALCIFEROL (VITAMIN D 2) 50,000 UNIT CAPSULE PO SCH (16:00)
--- NOTE | 2022-04-06 16:33 | NUR ---
PT TRANSFERRED TO 327-1 [facility]IA [facility] ACLS PROTOCOL. WARM HANDOFF GIVEN TO RN ASSIGNED.
[2022-04-06] MEDS: FLUTICASONE PROPIONATE 16 GM BOTTLE NS SCH (16:53)
[2022-04-06] MEDS: GABAPENTIN 100 MG CAPSULE PO SCH ×2 (16:54→16:55)
--- NOTE | 2022-04-06 17:00 | NUR ---
TRANSIT COACH OPERATOR ADMITTING NOTES PATIENT ARRIVED TO UNIT VIA GURNEY FROM ER. PATIENT LAYING IN BED, A/O X 4, ABLE TO MAKE NEEDS KNOWN, TOLERATING WELL ON ROOM AIR WITH NO S/S DISTRESS. R FOREARM # 20 SL CLEAN, INTACT, AND FLUSHING WELL. R CHEST WALL PERMACATH IN PLACE. TELE MONITOR IN PLACE READING NSR. PATIENT WITH BKA PRESENT. SAFETY MEASURES IN PLACE: BED IN LOWEST LOCKED POSITION, SIDE RAILS UP X 2, CALL LIGHT WITHIN REACH. WILL CONTINUE TO MONITOR.
[2022-04-06] MEDS: SEVELAMER CARBONATE 800 MG TABLET PO SCH (17:01)
[2022-04-06] MEDS: BLOOD SUGAR DIAGNOSTIC 1 EACH STRIP VI SCH ×2 (17:01→22:54)
[2022-04-06] MEDS: hydrOXYzine PAMOATE 25 MG CAPSULE PO PRN (17:56)
--- NOTE | 2022-04-06 19:00 | NUR ---
FORENSIC EXAMINER CLOSING NOTES PATIENT LAYING IN BED, A/O X 4, ABLE TO MAKE NEEDS KNOWN, TOLERATING WELL ON ROOM AIR WITH NO S/S DISTRESS. R FOREARM # 20 SL CLEAN, INTACT, AND FLUSHING WELL. TELE MONITOR IN PLACE READING NSR. SAFETY MEASURES IN PLACE: BED IN LOWEST LOCKED POSITION, SIDE RAILS UP X 2, CALL LIGHT WITHIN REACH. ALL NEEDS MET. WILL ENDORSE TO COMPOSITION TILE LAYER FOR HARVEY.
--- NOTE | 2022-04-06 19:35 | NUR ---
HR CONSULTANT OPENING NOTE RECEIVED PATIENT IN BED; AWAKE, ALERT AND ORIENTED X 3. ON O2 INHALATION @ 2 LPM VIA NASAL CANNULA; TOLERATING WELL. BREATHING EVEN AND NONLABORED. NOT IN ANY FORM OF RESPIRATORY DISTRESS. NO C/O ANY PAIN OR DISCOMFORT AT THIS TIME. ON TELEMETRY MONITORING WITH CURRENT READING OF SINUS RHYTHM HR-75 BPM. WITH IV ACCESS ON RIGHT FOREARM 20G; INTACT, PATENT AND SALINE LOCKED. WITH UPPER LEFT CHEST HD PERMACATH. ABLE TO MAKE NEEDS KNOWN. SAFETY PRECAUTIONS IMPLEMENTED: CALL LIGHT AND TABLE WITHIN REACH, SIDE RAILS UP X 2, BED IN LOWEST LOCKED POSITION. WILL CONTINUE PLAN OF CARE.
[2022-04-06 20:00] VITALS: BP 131/58
[2022-04-06 20:04] VITALS: BP 131/58
[2022-04-06] MEDS: INSULIN GLARGINE, 100 UNIT/ML CARTRIDGE SQ SCH (22:00)
--- NOTE | 2022-04-06 22:58 | NUR ---
RN NOTE BLOOD SUGAR CHECKED - 88 MG/DL. NO COVERAGE OF REGULAR INSULIN GIVEN PER SLIDING SCALE. INSULIN LANTUS 20 UNITS HELD. PROVIDED PATIENT WITH ORANGE JUICE AND TAHIRA CRACKERS. WILL CONTINUE TO MONITOR FOR S/S OF HYPERGLYCEMIA/HYPOGLYCEMIA.
[2022-04-06] MEDS: *INSULIN REGULAR(HUMULIN R)HUM 100 UNIT/ML VIAL SQ PRN (23:00)
[2022-04-06] MEDS: MORPHINE SULFATE INJ 2 MG/ML DISP.SYRIN IV PRN (23:21)
--- NOTE | 2022-04-06 23:21 | NUR ---
RN NOTE PATIENT COMPLAINED OF LOWER BACK PAIN 10/10 PAIN SCALE. PRN MORPHINE INJ 2 MG GIVEN IV ORDERED. WILL CONTINUE TO MONITOR AND REASSESS PT.
[2022-04-07] VITALS: BP 115/49
[2022-04-07 00:18] VITALS: BP 115/49
[2022-04-07] MEDS: MORPHINE SULFATE INJ 2 MG/ML DISP.SYRIN IV PRN ×4 (03:57→18:42)
[2022-04-07] MEDS: hydrOXYzine PAMOATE 25 MG CAPSULE PO PRN ×2 (05:04→11:14)
--- NOTE | 2022-04-07 05:04 | NUR ---
RN NOTE PATIENT C/O ITCHING ON ARMS AND BACK. PRN VISTARIL 25 MG GIVEN PO ORDERED. WILL CONTINUE TO MONITOR PT.
[2022-04-07] MEDS: INSULIN REGULAR, HUMAN 100 UNIT/ML 3 ML VIAL SQ PRN ×3 (06:51→17:12)
[2022-04-07] MEDS: BLOOD SUGAR DIAGNOSTIC 1 EACH STRIP VI SCH ×4 (06:51→21:41)
--- NOTE | 2022-04-07 07:10 | NUR ---
TOBACCO DRUMMER CLOSING NOTE PATIENT IN BED; AWAKE, A/O X 3. ON O2 INHALATION @ 2 LPM VIA NASAL CANNULA; WELL TOLERATED. BREATHING EQUAL AND UNLABORED. IN NO ACUTE DISTRESS. DENIES ANY PAIN OR DISCOMFORT AT THIS TIME. ON TELEMETRY MONITORING WITH CURRENT READING OF SINUS RHYTHM HR-79 BPM. WITH IV ACCESS ON RIGHT FOREARM 20G; INTACT, PATENT AND SALINE LOCKED. ALL NEEDS ATTENDED. SAFETY PRECAUTIONS MAINTAINED: CALL LIGHT AND TABLE WITHIN REACH, SIDE RAILS UP X 2, BED IN LOWEST LOCKED POSITION. ENDORSED TO MORNING SHIFT FOR HARVEY.
--- NOTE | 2022-04-07 07:25 | NUR ---
RN OPENING NOTE RECEIVED PATIENT IN BED, AWAKE, A/O X3, VERBALLY RESPONSIVE, NO SIGNS OF ACUTE DISTRESS NOTED. ON O2 @ 2LPM VIA N/C, NO SOB NOTED, BREATHING EVEN AND UNLABORED. ON TELE MONITOR SHOWING SINUS RHYTHM, HR @ 73. NOTED WITH LEFT UPPER CHEST PERMA CATH WITH DRESSING C/D/I. IV ACCESS ON RIGHT FOREARM #20 G, INTACT AND PATENT, SALINE LOCKED. SAFETY MEASURE IN PLACE, BED IN LOWEST AND LOCKED POSITION, SIDE RAILS UP X2, CALL LIGHT PLACED WITHIN EASY. WILL CONTINUE TO MONITOR PATIENT.
[2022-04-07 08:00] VITALS: BP 124/60
[2022-04-07] MEDS: SEVELAMER CARBONATE 800 MG TABLET PO SCH ×3 (08:28→17:10)
[2022-04-07] MEDS: PANTOPRAZOLE 40 MG TABLET.DR PO SCH (08:28)
[2022-04-07] MEDS: FLUTICASONE PROPIONATE 16 GM BOTTLE NS SCH ×2 (08:29→17:10)
[2022-04-07] MEDS: GABAPENTIN 100 MG CAPSULE PO SCH ×3 (08:35→17:00)
[2022-04-07 08:54] LABS: BASOPHILS % (AUTO) 1.1 % (0.0-2.0); EOSINOPHILS % (AUTO) 6.6 % (0.0-6.0); HEMATOCRIT 24 % (33-45); HEMOGLOBIN 7.6 g/dL (11.5-14.8); LYMPHOCYTES # (AUTO) 0.8 K/uL (0.8-4.8); LYMPHOCYTES % (AUTO) 24.3 % (20.0-44.0); MEAN CORPUSCULAR HGB CONC 31 g/dl (31.0-36.0); MEAN CORPUSCULAR VOLUME 85 fL (82-100); MONOCYTES # (AUTO) 0.4 K/uL (0.1-1.30); MONOCYTES % (AUTO) 10.3 % (2.0-12.0); NEUTROPHILS % (AUTO) 57.7 % (43.0-81.0); PLATELET COUNT (AUTO) 180 K/uL (150-450); RED BLOOD CELL COUNT(AUTO) 2.89 MIL/uL (4.0-5.2); WHITE BLOOD COUNT (AUTO) 3.4 K/uL (4.3-11.0)
[2022-04-07] MEDS: AMLODIPINE BESYLATE 5 MG TABLET PO SCH (09:00)
[2022-04-07 09:23] LABS: CALCIUM, SERUM 8.5 mg/dL (8.5-10.1); CREATININE 5.9 mg/dL (0.6-1.3); MAGNESIUM 2.9 mg/dL (1.8-2.4); PHOSPHORUS 5.8 mg/dL (2.5-4.9); POTASSIUM 4.4 mmol/L (3.5-5.1)
[2022-04-07] MEDS ORDERED: HYDROCORTISONE 1% CREAM 28.35 GM TUBE TP PRN (09:30)
[2022-04-07 12:00] VITALS: BP 148/70
[2022-04-07] MEDS ORDERED: EPOETIN ALFA-EPBX 10,000 UNIT/ML VIAL IV ONE ×2 (12:00→15:00)
--- NOTE | 2022-04-07 14:55 | NUR ---
RN NOTE PATIENT HEMODIALYSIS STARTED B Y HD NURSE GABRIELLE. VITAL SIGNS WNL.
[2022-04-07] MEDS: diphenhydrAMINE HCL 50 MG/ML VIAL IV PRN ×2 (15:19→21:29)
[2022-04-07 16:00] VITALS: BP 123/50
[2022-04-07] MEDS: NEPRO VAN 237 ML CAN PO SCH (17:19)
--- NOTE | 2022-04-07 17:55 | NUR ---
RN NOTE HEMODIALYSIS FINISHED, 2 LITERS OF FLUID REMOVED. VITAL SIGNS: 131/62, 78, 16, 98.4.
--- NOTE | 2022-04-07 18:29 | NUR ---
RN Closing shift note Patient is alert, oriented x 4, verbally responsive, and cooperative. Patient's low back pain and itching managed with MD ordered medications. Patient completeed hemodialysis treatment this afternoon. VS are stable and afebrile. Safety protocals explained to patient and maintained. Call light within easy reach of patient. Will endorse to mine shifter RN.
[2022-04-07] MEDS: ACETAMINOPHEN 325 MG TABLET PO PRN (18:49)
--- NOTE | 2022-04-07 19:25 | NUR ---
MATE CHIEF OPENING NOTES RECEIVED PT AWAKE, LYING IN BED AND WATCHING TV AT THIS TIME. A/O X4. COOPERATIVE AND ABLE TO MAKE NEEDS KNOWN. ON TELE MONITOR READING SR, HR 95. IV ACCESS RFA #20G, PATENT AND INTACT, SL. SAFETY PRECAUTIONS IN PLACE: BED LOCKED AND IN LOW POSITION, SIDE RAILS UP X3, CALL LIGHT & TRAY TABLE WITHIN REACH. WILL CONTINUE TO MONITOR AND ASSIST.
[2022-04-07 20:00] VITALS: BP 152/89
[2022-04-07] MEDS: *INSULIN REGULAR(HUMULIN R)HUM 100 UNIT/ML VIAL SQ PRN (21:43)
[2022-04-07] MEDS: INSULIN GLARGINE, 100 UNIT/ML CARTRIDGE SQ SCH (22:00)
--- NOTE | 2022-04-07 22:00 | NUR ---
RN NOTE BLOOD SUGAR CHECKED - 111 MG/DL. NO COVERAGE OF REGULAR INSULIN GIVEN PER SLIDING SCALE. INSULIN LANTUS 20 UNITS HELD. PROVIDED PATIENT WITH APPLE JUICE AND TUNA SANDWICH. WILL CONTINUE TO MONITOR FOR S/S OF HYPERGLYCEMIA/HYPOGLYCEMIA.
[2022-04-08] VITALS: BP 136/82
[2022-04-08] MEDS: MORPHINE SULFATE INJ 2 MG/ML DISP.SYRIN IV PRN ×2 (02:43→12:10)
[2022-04-08 04:00] VITALS: BP 138/70
[2022-04-08] MEDS: diphenhydrAMINE HCL 50 MG/ML VIAL IV PRN (05:09)
--- NOTE | 2022-04-08 05:14 | NUR ---
RN NOTE PATIENT COMPLAINING THAT SHE IS ITCHY, BENADRYL IVP GIVEN. APPLIED SKIN BARRIER CREAM ON HER L UPPER BACK.
[2022-04-08 06:23] LABS: BASOPHILS % (AUTO) 0.4 % (0.0-2.0); EOSINOPHILS % (AUTO) 6.7 % (0.0-6.0); HEMATOCRIT 24 % (33-45); HEMOGLOBIN 7.7 g/dL (11.5-14.8); LYMPHOCYTES # (AUTO) 0.7 K/uL (0.8-4.8); LYMPHOCYTES % (AUTO) 18.5 % (20.0-44.0); MEAN CORPUSCULAR HGB CONC 32 g/dl (31.0-36.0); MEAN CORPUSCULAR VOLUME 84 fL (82-100); MONOCYTES # (AUTO) 0.5 K/uL (0.1-1.30); MONOCYTES % (AUTO) 11.1 % (2.0-12.0); NEUTROPHILS # (AUTO) 2.6 K/uL (1.8-8.9); NEUTROPHILS % (AUTO) 63.3 % (43.0-81.0); PLATELET COUNT (AUTO) 175 K/uL (150-450); RED BLOOD CELL COUNT(AUTO) 2.89 MIL/uL (4.0-5.2); WHITE BLOOD COUNT (AUTO) 4.1 K/uL (4.3-11.0)
[2022-04-08 06:27] LABS: CALCIUM, SERUM 8.5 mg/dL (8.5-10.1); CREATININE 4.1 mg/dL (0.6-1.3); POTASSIUM 4.1 mmol/L (3.5-5.1)
[2022-04-08] MEDS: BLOOD SUGAR DIAGNOSTIC 1 EACH STRIP VI SCH ×2 (07:05→12:11)
[2022-04-08] MEDS: INSULIN REGULAR, HUMAN 100 UNIT/ML 3 ML VIAL SQ PRN ×2 (07:05→12:11)
--- NOTE | 2022-04-08 07:25 | NUR ---
N OPENING NOTE RECEIVED PATIENT IN BED, AWAKE, A/O X3, VERBALLY RESPONSIVE, NO SIGNS OF ACUTE DISTRESS NOTED. ON O2 @ 2LPM VIA N/C, NO SOB NOTED, BREATHING EVEN AND UNLABORED. ON TELE MONITOR SHOWING SINUS RHYTHM, HR @ 86. NOTED WITH LEFT UPPER CHEST PERMA CATH WITH DRESSING C/D/I. IV ACCESS ON RIGHT FOREARM #20 G, INTACT AND PATENT, SALINE LOCKED. SAFETY MEASURE IN PLACE, BED IN LOWEST AND LOCKED POSITION, SIDE RAILS UP X2, CALL LIGHT PLACED WITHIN EASY. WILL CONTINUE TO MONITOR PATIENT.
--- NOTE | 2022-04-08 07:30 | NUR ---
FORENSIC SERGEANT CLOSING NOTES PT LYING IN BED, ASLEEP AT THIS TIME. A/O X4. COOPERATIVE AND ABLE TO MAKE NEEDS KNOWN. ON TELE MONITOR READING SR, HR 78. IV ACCESS RFA #20G, PATENT AND INTACT, SL. ALL CARE PROVIDED AND ADMINISTERED MEDICATIONS TOLERATED WELL. PAIN MANAGEMENT MAINTAINED. SAFETY PRECAUTIONS MAINTAINED: BED LOCKED AND IN LOW POSITION, SIDE RAILS UP X3, CALL LIGHT & TRAY TABLE WITHIN REACH. WILL ENDORSE HARVEY TO REGISTERED NURSE STEP DOWN NURSE.
[2022-04-08 08:00] VITALS: BP 164/91
[2022-04-08 08:24] LABS: IRON, SERUM 85 ug/dl (50-175); TOTAL IRON BINDING CAPACITY 143 ug/dl (250-450)
[2022-04-08] MEDS: NEPRO VAN 237 ML CAN PO SCH (08:54)
[2022-04-08] MEDS: FLUTICASONE PROPIONATE 16 GM BOTTLE NS SCH (08:54)
[2022-04-08] MEDS: SEVELAMER CARBONATE 800 MG TABLET PO SCH ×2 (08:55→12:27)
[2022-04-08 08:59] LABS: FERRITIN 1683 ng/mL (8-388)
[2022-04-08] MEDS: AMLODIPINE BESYLATE 5 MG TABLET PO SCH ×2 (08:59→12:09)
[2022-04-08] MEDS: GABAPENTIN 100 MG CAPSULE PO SCH ×2 (08:59→12:23)
[2022-04-08] MEDS: PANTOPRAZOLE 40 MG TABLET.DR PO SCH (09:04)
[2022-04-08] MEDS: ACETAMINOPHEN 325 MG TABLET PO PRN (09:23)
[2022-04-08] MEDS ORDERED: NA PHOS,M-B/NA PHOS,DI-BA 1 EA ENEMA RC PRN (11:00)
--- NOTE | 2022-04-08 11:27 | NUR ---
Bedside Treatment Nursing Note Patient tolerated well Fleets Enema with fecal manual disimpaction x 1. RN removed 10 large marble sized and shaped hard stools.
[2022-04-08 12:09] VITALS: BP 138/69
--- NOTE | 2022-04-08 15:00 | NUR ---
INSTRUCTIONAL TECHNOLOGY COACH NOTE DISCHARGED PATIENT TO HOME IN STABLE CONDITION. PATIENT REMAINS AWAKE, A/O X3, VERBALLY RESPONSIVE, NO SIGNS OF ACUTE DISTRESS NOTED. VITAL SIGNS STABLE. ALL BELONGINGS ACCOUNTED FOR, FORM SIGNED BY PATIENT. IV ACCESS REMOVED, NO BLEEDING NOTED, PRESSURE DRESSING APPLIED TO SITE. ARM NAME BAND REMOVED. DISCHARGE INSTRUCTIONS AND HEALTH TEACHINGS PROVIDED TO PATIENT WITH VERBALIZATION OF UNDERSTANDING. EXIT CARE FOLDER GIVEN TO [facility] [employer] [facility], HANDOFF REPORT GIVEN. PATIENT PICKED UP @ 1445 VIA GURNEY. CN AWARE OF DISCHARGE.
[2022-04-09] MEDS ORDERED: EPOETIN ALFA (10,000 UNIT) 10,000 UNIT/ML VIAL IV ONE (15:00)
== END 2022-04-08 14:45 | disposition home health service (06) | DRG 640 ==
LOC: ER 09:58 → TELE 14:51
PROVIDERS: ADMIT Internal Medicine; ATTEND Internal Medicine
PROC: 5A1D70Z Performance of Urinary Filtration, Intermittent, Less than 6 Hours Per Day (ICD-10-PCS; principal; 2022-04-07)
DX: E87.70 Fluid overload, unspecified (principal); G93.41 Metabolic encephalopathy; N18.6 End stage renal disease; I12.0 Hypertensive chronic kidney disease with stage 5 chronic kidney disease or end stage renal disease; G82.20 Paraplegia, unspecified; Z99.2 Dependence on renal dialysis; W18.30XA Fall on same level, unspecified, initial encounter; Y92.89 Other specified places as the place of occurrence of the external cause; E11.22 Type 2 diabetes mellitus with diabetic chronic kidney disease; S09.93XA Unspecified injury of face, initial encounter; Z89.512 Acquired absence of left leg below knee; Z79.899 Other long term (current) drug therapy; Z79.4 Long term (current) use of insulin; M85.80 Other specified disorders of bone density and structure, unspecified site; M89.8X9 Other specified disorders of bone, unspecified site; R29.6 Repeated falls; F41.9 Anxiety disorder, unspecified; D64.9 Anemia, unspecified; L29.9 Pruritus, unspecified; E66.9 Obesity, unspecified; Z68.30 Body mass index [BMI] 30.0-30.9, adult
CPT/HCPCS: 36415; 70450-TC; 70486-TC; 71045-TC; 72170-TC; 80048-TC; 80076-TC; 82607-TC; 82728-TC; 82962-TC; 83540-TC; 83735-TC; 84100-TC; 85025-TC; 85730-TC; 86706; 87340; 90935-TC; 93307-TC; 97530-TC; C9803; G0378; J0885; J1200; J1815; J2270; J2405; J7030; Q0177

== ENCOUNTER 2023-03-01 15:17 | Emergency (ER) | payer MEDICARE, OTHER ==
[~2023-03-01] VITALS: Ht 162.6 cm; Wt 86.2 kg
[~2023-03-01 15:17] MED LIST changes: +AMLO-212 PO; -ASPI-1169 PO; -ATOR10TA PO; -CEPH500C2 PO; +CHOL500052 PO; +DICL100G34 TP; +FLUT16SP16; +GABA-532 PO; +HYDR-3980 PO; +HYDR-500 PO; -MIDO5TAB4 PO; -OLAN5TAB6 PO; -OXYC1TAB12 PO
[2023-03-01] MEDS ORDERED: HYDROCODONE/APAP 10/325MG TABLET ONE (15:43)
[2023-03-01] MEDS ORDERED: HYDROCODONE/APAP 10/325MG TABLET PO ONE (16:00)
[2023-03-01 19:37] VITALS: BP 145/78; TEMP 98; O2SAT 100
== END 2023-03-01 19:37 | disposition home or self-care (01) ==
LOC: ER 15:17
DX: M54.50 Low back pain, unspecified (principal); G89.29 Other chronic pain; E11.9 Type 2 diabetes mellitus without complications; Z98.890 Other specified postprocedural states; Z79.899 Other long term (current) drug therapy; Z60.2 Problems related to living alone; Z79.4 Long term (current) use of insulin

== ENCOUNTER 2024-07-22 13:48 | Emergency (ER) | payer MEDICARE, OTHER ==
[~2024-07-22] VITALS: Ht 162.6 cm; Wt 91.6 kg
[2024-07-22] MEDS ORDERED: hydrALAZINE HCL IV 20 MG VIAL ONE (14:30)
[2024-07-22] MEDS ORDERED: DIPHENHYDRAMINE HCL 12.5 MG/5 ML UDC PO ONE (14:30)
[2024-07-22] MEDS ORDERED: diphenhydrAMINE HCL 25 MG CAPSULE ONE (14:31)
[2024-07-22] MEDS ORDERED: MORPHINE SULFATE INJ 2 MG/ML DISP.SYRIN ONE (14:31)
[2024-07-22 14:32] LABS: BASOPHILS % (AUTO) 1.5 % (0.0-2.0); EOSINOPHILS # (AUTO) 0.1 K/uL (0.0-0.7); EOSINOPHILS % (AUTO) 4.2 % (0.0-6.0); HEMATOCRIT 37 % (33-45); HEMOGLOBIN 11.9 g/dL (11.5-14.8); LYMPHOCYTES # (AUTO) 0.8 K/uL (0.8-4.8); LYMPHOCYTES % (AUTO) 32.5 % (20.0-44.0); MEAN CORPUSCULAR HEMOGLOBIN 28 PG (26.0-33.0); MEAN CORPUSCULAR HGB CONC 32 g/dl (31.0-36.0); MEAN CORPUSCULAR VOLUME 86 fL (82-100); MONOCYTES # (AUTO) 0.2 K/uL (0.1-1.30); MONOCYTES % (AUTO) 8.4 % (2.0-12.0); NEUTROPHILS # (AUTO) 1.4 K/uL (1.8-8.9); NEUTROPHILS % (AUTO) 53.4 % (43.0-81.0); PLATELET COUNT (AUTO) 109 K/uL (150-450); RED CELL DISTRIBUTION WIDTH 19.6 % (11.5-15.0); WHITE BLOOD COUNT (AUTO) 2.6 K/uL (4.3-11.0)
[2024-07-22] MEDS: hydrALAZINE HCL IV 20 MG VIAL IV ONE (14:49)
[2024-07-22] MEDS: MORPHINE SULFATE INJ 2 MG/ML DISP.SYRIN IV ONE ×3 (14:50→20:17)
[2024-07-22 14:51] LABS: CALCIUM, SERUM 9.8 mg/dL (8.5-10.1); CREATININE 4.5 mg/dL (0.6-1.3); POTASSIUM 4.7 mmol/L (3.5-5.1)
[2024-07-22] MEDS ORDERED: diphenhydrAMINE HCL 50 MG/ML VIAL ONE ×3 (14:52→20:14)
[2024-07-22] MEDS: diphenhydrAMINE HCL 50 MG/ML VIAL IV ONE ×3 (15:17→20:17)
[2024-07-22] MEDS ORDERED: LISINOPRIL (10MG) 10 MG TABLET ONE (16:45)
[2024-07-22] MEDS: LISINOPRIL (10MG) 10 MG TABLET PO SCH (16:48)
[2024-07-22] MEDS ORDERED: MORPHINE SULFATE INJ 4 MG/ML DISP.SYRIN ONE ×2 (16:59→20:15)
[2024-07-22 20:38] VITALS: BP 163/101; TEMP 98.1; O2SAT 95
== END 2024-07-22 20:39 | disposition home or self-care (01) ==
LOC: ER 14:12
DX: S39.012A Strain of muscle, fascia and tendon of lower back, initial encounter (principal); I12.0 Hypertensive chronic kidney disease with stage 5 chronic kidney disease or end stage renal disease; N18.6 End stage renal disease; E11.22 Type 2 diabetes mellitus with diabetic chronic kidney disease; G82.20 Paraplegia, unspecified; G89.29 Other chronic pain; K21.9 Gastro-esophageal reflux disease without esophagitis; R11.2 Nausea with vomiting, unspecified; R20.0 Anesthesia of skin; R50.9 Fever, unspecified; R51.9 Headache, unspecified; Z79.4 Long term (current) use of insulin; Z89.512 Acquired absence of left leg below knee; Z99.2 Dependence on renal dialysis; Z60.2 Problems related to living alone; X58.XXXA Exposure to other specified factors, initial encounter; Y93.89 Activity, other specified; Y92.89 Other specified places as the place of occurrence of the external cause; Y99.8 Other external cause status
CPT/HCPCS: 99285; 96374; 96375; 96376; 85025; 80048; 36415; Q0163; J1200 ×3; J0360; J2270 ×3

== ENCOUNTER 2024-07-29 22:33 | Emergency (ER) | payer MEDICARE, OTHER ==
[~2024-07-29] VITALS: Ht 157.5 cm; Wt 79.8 kg
[2024-07-29] MEDS: IV NS 0.9% 500 ML BAG IV ONE (23:08)
[2024-07-29 23:28] LABS: CALCIUM, SERUM 9.8 mg/dL (8.5-10.1); CARBON DIOXIDE 29 mmol/L (21-32); CHLORIDE 101 mmol/L (98-107); CREATININE 5.2 mg/dL (0.6-1.3); GLUCOSE 149 mg/dL (74-106); POTASSIUM 4.1 mmol/L (3.5-5.1); SODIUM SERUM 141 mmol/L (136-145); UREA NITROGEN, BLOOD 21 mg/dL (7-18)
[2024-07-29 23:30] LABS: BASOPHILS % (AUTO) 0.5 % (0.0-2.0); EOSINOPHILS % (AUTO) 0.8 % (0.0-6.0); HEMATOCRIT 39 % (33-45); HEMOGLOBIN 11.9 g/dL (11.5-14.8); LYMPHOCYTES # (AUTO) 0.4 K/uL (0.8-4.8); LYMPHOCYTES % (AUTO) 15.1 % (20.0-44.0); MEAN CORPUSCULAR HEMOGLOBIN 27 PG (26.0-33.0); MEAN CORPUSCULAR HGB CONC 31 g/dl (31.0-36.0); MEAN CORPUSCULAR VOLUME 88 fL (82-100); MONOCYTES # (AUTO) 0.2 K/uL (0.1-1.30); MONOCYTES % (AUTO) 5.6 % (2.0-12.0); NEUTROPHILS # (AUTO) 2.3 K/uL (1.8-8.9); PLATELET COUNT (AUTO) 146 K/uL (150-450); RED CELL DISTRIBUTION WIDTH 19.5 % (11.5-15.0); WHITE BLOOD COUNT (AUTO) 2.9 K/uL (4.3-11.0)
[2024-07-29 23:34] LABS: ALANINE AMINOTRANSFERASE 14 U/L (12-78); ALBUMIN 3.7 g/dL (3.4-5.0); ALKALINE PHOSPHATASE 182 U/L (46-116); ASPARTATE AMINOTRANSFERASE 21 U/L (15-37); BILIRUBIN,DIRECT 0.3 mg/dL (0.0-0.2); BILIRUBIN,TOTAL 0.7 mg/dL (0.2-1.0); TOTAL PROTEIN, SERUM 7.8 g/dL (6.4-8.2)
[2024-07-29 23:35] LABS: INR 1.04 (0.91-1.10); LACTIC ACID 1.1 mmol/L (0.4-2.0); PARTIAL THROMBOPLASTIN TIME 28.3 SEC (24.3-34.3)
[2024-07-29 23:39] LABS: ACETAMINOPHEN <10 ug/ml (10-30); ALCOHOL, BLOOD < 3 mg/dL (0-10)
[2024-07-29 23:49] LABS: SERUM AMMONIA 10 umol/L (11-32)
[2024-07-30 01:43] VITALS: BP 145/78; TEMP 98.2; O2SAT 98
[2024-07-30] MEDS ORDERED: HYDR-3642 PO (15:21)
[2024-07-30] MEDS ORDERED: PRAV20TA4 PO (15:21)
[2024-07-30] MEDS ORDERED: FOLI0.8T23 PO (15:21)
[2024-07-30] MEDS ORDERED: PREG25CA51 PO (15:21)
[2024-07-30] MEDS ORDERED: DOCU100C36 PO (15:21)
[2024-07-30] MEDS ORDERED: ASPI-1169 PO (15:21)
[2024-07-30] MEDS ORDERED: LINA5TAB PO (15:21)
[2024-07-30] MEDS ORDERED: INSU100I30 SQ (15:21)
[2024-07-30] MEDS ORDERED: CALC-1159 PO (15:21)
[2024-07-30] MEDS ORDERED: BETA45CR3 TP (15:21)
[2024-07-30] MEDS ORDERED: ONDA-97 PO (15:21)
[2024-07-30] MEDS ORDERED: METH10TA7 PO (15:21)
[2024-07-30] MEDS ORDERED: ALPR1TAB7 PO (15:21)
[2024-07-30] MEDS ORDERED: METO25TA6 PO (15:21)
[2024-07-30] MEDS ORDERED: SODI5POW2 PO (15:21)
[2024-07-30] MEDS ORDERED: MIDO10TA PO (15:21)
== END 2024-07-30 01:45 | disposition home or self-care (01) ==
LOC: ER 22:46
DX: R41.0 Disorientation, unspecified (principal); T42.4X5A Adverse effect of benzodiazepines, initial encounter; E11.22 Type 2 diabetes mellitus with diabetic chronic kidney disease; G82.20 Paraplegia, unspecified; N18.6 End stage renal disease; Z71.1 Person with feared health complaint in whom no diagnosis is made; Z79.899 Other long term (current) drug therapy; Z99.2 Dependence on renal dialysis; Z89.512 Acquired absence of left leg below knee
CPT/HCPCS: 99285; 93005; 71045; 70450; 82140; 85025; 80048; 87040 ×2; 83605; 80076; 36415; 84484; 85730; 80143; 80320; J7040; G0480

== ENCOUNTER 2024-07-30 06:36 | Emergency (ER) | payer MEDICARE, OTHER ==
[~2024-07-30] VITALS: Ht 157.5 cm; Wt 79.8 kg
[2024-07-30 07:26] LABS: BASOPHILS % (AUTO) 0.7 % (0.0-2.0); EOSINOPHILS % (AUTO) 0.7 % (0.0-6.0); HEMATOCRIT 39 % (33-45); LYMPHOCYTES # (AUTO) 0.5 K/uL (0.8-4.8); LYMPHOCYTES % (AUTO) 14.8 % (20.0-44.0); MEAN CORPUSCULAR HEMOGLOBIN 27 PG (26.0-33.0); MEAN CORPUSCULAR HGB CONC 31 g/dl (31.0-36.0); MEAN CORPUSCULAR VOLUME 87 fL (82-100); MONOCYTES # (AUTO) 0.2 K/uL (0.1-1.30); MONOCYTES % (AUTO) 7.6 % (2.0-12.0); NEUTROPHILS # (AUTO) 2.5 K/uL (1.8-8.9); NEUTROPHILS % (AUTO) 76.2 % (43.0-81.0); PLATELET COUNT (AUTO) 150 K/uL (150-450); RED BLOOD CELL COUNT(AUTO) 4.49 MIL/uL (4.0-5.2); RED CELL DISTRIBUTION WIDTH 19.7 % (11.5-15.0); WHITE BLOOD COUNT (AUTO) 3.3 K/uL (4.3-11.0)
[2024-07-30 07:38] LABS: SERUM AMMONIA 3 umol/L (11-32)
[2024-07-30 07:43] LABS: ALANINE AMINOTRANSFERASE 17 U/L (12-78); ALBUMIN 3.7 g/dL (3.4-5.0); ALCOHOL, BLOOD < 3 mg/dL (0-10); ALKALINE PHOSPHATASE 175 U/L (46-116); ASPARTATE AMINOTRANSFERASE 23 U/L (15-37); BILIRUBIN,DIRECT 0.3 mg/dL (0.0-0.2); BILIRUBIN,TOTAL 0.8 mg/dL (0.2-1.0); CALCIUM, SERUM 10.2 mg/dL (8.5-10.1); CARBON DIOXIDE 27 mmol/L (21-32); CHLORIDE 101 mmol/L (98-107); CREATININE 5.7 mg/dL (0.6-1.3); GLUCOSE 125 mg/dL (74-106); POTASSIUM 4.1 mmol/L (3.5-5.1); SODIUM SERUM 141 mmol/L (136-145); TOTAL PROTEIN, SERUM 7.8 g/dL (6.4-8.2); UREA NITROGEN, BLOOD 26 mg/dL (7-18)
[2024-07-30 07:45] LABS: SALICYLATE 1.4 mg/dL (2.8-20.0)
[2024-07-30 07:46] LABS: ACETAMINOPHEN <10 ug/ml (10-30)
[2024-07-30 10:31] VITALS: BP 148/89; TEMP 98.1; O2SAT 99
[2024-07-30] MEDS ORDERED: ONDA-97 PO (15:21)
[2024-07-30] MEDS ORDERED: HYDR-3642 PO (15:21)
[2024-07-30] MEDS ORDERED: ASPI-1169 PO (15:21)
[2024-07-30] MEDS ORDERED: FOLI0.8T23 PO (15:21)
[2024-07-30] MEDS ORDERED: MIDO10TA PO (15:21)
[2024-07-30] MEDS ORDERED: LINA5TAB PO (15:21)
[2024-07-30] MEDS ORDERED: SODI5POW2 PO (15:21)
[2024-07-30] MEDS ORDERED: PRAV20TA4 PO (15:21)
[2024-07-30] MEDS ORDERED: ALPR1TAB7 PO (15:21)
[2024-07-30] MEDS ORDERED: BETA45CR3 TP (15:21)
[2024-07-30] MEDS ORDERED: PREG25CA51 PO (15:21)
[2024-07-30] MEDS ORDERED: DOCU100C36 PO (15:21)
[2024-07-30] MEDS ORDERED: INSU100I30 SQ (15:21)
[2024-07-30] MEDS ORDERED: METO25TA6 PO (15:21)
[2024-07-30] MEDS ORDERED: METH10TA7 PO (15:21)
[2024-07-30] MEDS ORDERED: CALC-1159 PO (15:21)
== END 2024-07-30 10:32 | disposition home or self-care (01) ==
LOC: ER 06:48
DX: R41.82 Altered mental status, unspecified (principal); T42.4X5A Adverse effect of benzodiazepines, initial encounter; E11.22 Type 2 diabetes mellitus with diabetic chronic kidney disease; R07.9 Chest pain, unspecified; G82.20 Paraplegia, unspecified; I12.0 Hypertensive chronic kidney disease with stage 5 chronic kidney disease or end stage renal disease; N18.6 End stage renal disease; I51.7 Cardiomegaly; Z76.0 Encounter for issue of repeat prescription; Z79.899 Other long term (current) drug therapy; Z89.512 Acquired absence of left leg below knee; Y92.89 Other specified places as the place of occurrence of the external cause
CPT/HCPCS: 70450-TC; 71045-TC; 80048-TC; 80076-TC; 82140-TC; 84443-TC; 84484-TC; 85025-TC; G0480

== ENCOUNTER 2024-07-30 13:18 | Inpatient (IN) | payer MEDICARE, OTHER ==
[~2024-07-30] VITALS: Ht 162.6 cm; Wt 79.4 kg
[~2024-07-30 13:18] MED LIST changes: +LORAZEPAM INJ 2 MG/ML VIAL IV ONE
[2024-07-30 14:01] LABS: BASOPHILS % (AUTO) 0.4 % (0.0-2.0); EOSINOPHILS % (AUTO) 0.4 % (0.0-6.0); HEMATOCRIT 38 % (33-45); HEMOGLOBIN 12.1 g/dL (11.5-14.8); LYMPHOCYTES # (AUTO) 0.4 K/uL (0.8-4.8); LYMPHOCYTES % (AUTO) 10.7 % (20.0-44.0); MEAN CORPUSCULAR HEMOGLOBIN 27 PG (26.0-33.0); MEAN CORPUSCULAR HGB CONC 32 g/dl (31.0-36.0); MEAN CORPUSCULAR VOLUME 86 fL (82-100); MONOCYTES # (AUTO) 0.2 K/uL (0.1-1.30); MONOCYTES % (AUTO) 6.6 % (2.0-12.0); NEUTROPHILS # (AUTO) 2.8 K/uL (1.8-8.9); NEUTROPHILS % (AUTO) 81.9 % (43.0-81.0); PLATELET COUNT (AUTO) 140 K/uL (150-450); RED BLOOD CELL COUNT(AUTO) 4.44 MIL/uL (4.0-5.2); RED CELL DISTRIBUTION WIDTH 19.1 % (11.5-15.0); WHITE BLOOD COUNT (AUTO) 3.5 K/uL (4.3-11.0)
[2024-07-30 14:24] LABS: ALBUMIN 3.8 g/dL (3.4-5.0); BILIRUBIN,DIRECT 0.3 mg/dL (0.0-0.2); CALCIUM, SERUM 10.2 mg/dL (8.5-10.1); CREATININE 4.2 mg/dL (0.6-1.3); POTASSIUM 4.3 mmol/L (3.5-5.1); TOTAL PROTEIN, SERUM 7.8 g/dL (6.4-8.2)
[2024-07-30] MEDS ORDERED: hydrALAZINE HCL IV 20 MG VIAL ONE (15:16)
[2024-07-30] MEDS ORDERED: ASPI-1169 PO (15:21)
[2024-07-30] MEDS ORDERED: PRAV20TA4 PO (15:21)
[2024-07-30] MEDS ORDERED: FOLI0.8T23 PO (15:21)
[2024-07-30] MEDS ORDERED: BETA45CR3 TP (15:21)
[2024-07-30] MEDS ORDERED: CALC-1159 PO (15:21)
[2024-07-30] MEDS ORDERED: PREG25CA51 PO (15:21)
[2024-07-30] MEDS ORDERED: METO25TA6 PO (15:21)
[2024-07-30] MEDS ORDERED: DOCU100C36 PO (15:21)
[2024-07-30] MEDS ORDERED: MIDO10TA PO (15:21)
[2024-07-30] MEDS ORDERED: INSU100I30 SQ (15:21)
[2024-07-30] MEDS ORDERED: SODI5POW2 PO (15:21)
[2024-07-30] MEDS ORDERED: LINA5TAB PO (15:21)
[2024-07-30] MEDS ORDERED: METH10TA7 PO (15:21)
[2024-07-30] MEDS ORDERED: ONDA-97 PO (15:21)
[2024-07-30] MEDS ORDERED: ALPR1TAB7 PO (15:21)
[2024-07-30] MEDS ORDERED: HYDR-3642 PO (15:21)
[2024-07-30] MEDS: hydrALAZINE HCL IV 20 MG VIAL IV ONE (15:28)
[2024-07-30] MEDS ORDERED: ONDANSETRON HCL/PF 4 MG/2 ML VIAL IVP PRN (16:30)
[2024-07-30 17:00] VITALS: BP 205/102; TEMP 98.2; O2SAT 98
[2024-07-30] MEDS: hydrALAZINE HCL IV 20 MG VIAL IV PRN (17:15)
[2024-07-30 18:00] VITALS: BP 180/80
[2024-07-30 20:00] VITALS: BP 158/91; TEMP 98.1; O2SAT 95; O2SAT 96
[2024-07-30] MEDS: HEPARIN SODIUM, PORCINE 5000 UNITS/1 ML VIAL SQ SCH (21:00)
[2024-07-30] MEDS ORDERED: IOHEXOL-350 100 ML VIAL IV ONE (21:13)
[2024-07-30] MEDS ORDERED: CT SWABBABLE VALVE TRANS SET 1 EA INFUS.SET MC ONE (21:13)
[2024-07-30 21:34] LABS: BASOPHILS # (AUTO) 0.1 K/uL (0.0-0.2); BASOPHILS % (AUTO) 2.3 % (0.0-2.0); EOSINOPHILS % (AUTO) 0.2 % (0.0-6.0); HEMATOCRIT 40 % (33-45); HEMOGLOBIN 12.3 g/dL (11.5-14.8); LYMPHOCYTES # (AUTO) 0.3 K/uL (0.8-4.8); LYMPHOCYTES % (AUTO) 7.5 % (20.0-44.0); MEAN CORPUSCULAR HEMOGLOBIN 27 PG (26.0-33.0); MEAN CORPUSCULAR HGB CONC 31 g/dl (31.0-36.0); MEAN CORPUSCULAR VOLUME 86 fL (82-100); MONOCYTES # (AUTO) 0.4 K/uL (0.1-1.30); MONOCYTES % (AUTO) 9.7 % (2.0-12.0); NEUTROPHILS # (AUTO) 3.6 K/uL (1.8-8.9); NEUTROPHILS % (AUTO) 80.3 % (43.0-81.0); PLATELET COUNT (AUTO) 137 K/uL (150-450); RED BLOOD CELL COUNT(AUTO) 4.61 MIL/uL (4.0-5.2); WHITE BLOOD COUNT (AUTO) 4.5 K/uL (4.3-11.0)
[2024-07-30 21:38] LABS: CREATININE 4.7 mg/dL (0.6-1.3); POTASSIUM 4.2 mmol/L (3.5-5.1)
[2024-07-30 21:46] LABS: INR 1.07 (0.91-1.10); PARTIAL THROMBOPLASTIN TIME 26.8 SEC (24.3-34.3); PROTHROMBIN TIME 11.3 SECS (9.2-11.1)
[2024-07-31] VITALS (10 sets, daily range): BP systolic 122–175; BP diastolic 78–110; TEMP 98.1–99.7; O2SAT 92–100
[2024-07-31] MEDS: LORAZEPAM INJ 2 MG/ML VIAL IV ONE (00:19)
[2024-07-31] MEDS ORDERED: IOHEXOL-350 100 ML VIAL IV ONE (03:10)
[2024-07-31] MEDS: ALBUTEROL FS 2.5 MG/3 ML VIAL.NEB NEB PRN (04:27)
[2024-07-31] MEDS: PANTOPRAZOLE 40 MG VIAL IV SCH (09:00)
[2024-07-31 09:33] LABS: BASOPHILS # (AUTO) 0.1 K/uL (0.0-0.2); BASOPHILS % (AUTO) 1.4 % (0.0-2.0); HEMATOCRIT 39 % (33-45); HEMOGLOBIN 11.8 g/dL (11.5-14.8); LYMPHOCYTES # (AUTO) 0.3 K/uL (0.8-4.8); LYMPHOCYTES % (AUTO) 6.2 % (20.0-44.0); MEAN CORPUSCULAR HEMOGLOBIN 27 PG (26.0-33.0); MEAN CORPUSCULAR HGB CONC 30 g/dl (31.0-36.0); MEAN CORPUSCULAR VOLUME 87 fL (82-100); MONOCYTES # (AUTO) 0.4 K/uL (0.1-1.30); MONOCYTES % (AUTO) 9.3 % (2.0-12.0); NEUTROPHILS # (AUTO) 3.8 K/uL (1.8-8.9); NEUTROPHILS % (AUTO) 83.1 % (43.0-81.0); PLATELET COUNT (AUTO) 135 K/uL (150-450); RED BLOOD CELL COUNT(AUTO) 4.43 MIL/uL (4.0-5.2); RED CELL DISTRIBUTION WIDTH 19.4 % (11.5-15.0); WHITE BLOOD COUNT (AUTO) 4.6 K/uL (4.3-11.0)
[2024-07-31 10:03] LABS: CALCIUM, SERUM 10.1 mg/dL (8.5-10.1); CREATININE 5.8 mg/dL (0.6-1.3); MAGNESIUM 2.4 mg/dL (1.8-2.4); PHOSPHORUS 5.7 mg/dL (2.5-4.9); POTASSIUM 4.3 mmol/L (3.5-5.1)
[2024-08-01 00:27] VITALS: BP 157/88; TEMP 99.1; O2SAT 100
[2024-08-01 08:32] LABS: ALBUMIN 3.2 g/dL (3.4-5.0); BILIRUBIN,TOTAL 0.6 mg/dL (0.2-1.0); CALCIUM, SERUM 9.2 mg/dL (8.5-10.1); CREATININE 7.3 mg/dL (0.6-1.3); MAGNESIUM 2.5 mg/dL (1.8-2.4); PHOSPHORUS 6.2 mg/dL (2.5-4.9); POTASSIUM 4.6 mmol/L (3.5-5.1); TOTAL PROTEIN, SERUM 6.5 g/dL (6.4-8.2)
[2024-08-01 08:57] LABS: BASOPHILS % (AUTO) 0.3 % (0.0-2.0); EOSINOPHILS % (AUTO) 0.1 % (0.0-6.0); HEMATOCRIT 33 % (33-45); HEMOGLOBIN 10.1 g/dL (11.5-14.8); LYMPHOCYTES # (AUTO) 0.4 K/uL (0.8-4.8); LYMPHOCYTES % (AUTO) 12.9 % (20.0-44.0); MEAN CORPUSCULAR HEMOGLOBIN 27 PG (26.0-33.0); MEAN CORPUSCULAR HGB CONC 31 g/dl (31.0-36.0); MEAN CORPUSCULAR VOLUME 87 fL (82-100); MONOCYTES # (AUTO) 0.4 K/uL (0.1-1.30); NEUTROPHILS # (AUTO) 2.4 K/uL (1.8-8.9); NEUTROPHILS % (AUTO) 73.7 % (43.0-81.0); PLATELET COUNT (AUTO) 109 K/uL (150-450); RED BLOOD CELL COUNT(AUTO) 3.78 MIL/uL (4.0-5.2); RED CELL DISTRIBUTION WIDTH 19.2 % (11.5-15.0); WHITE BLOOD COUNT (AUTO) 3.2 K/uL (4.3-11.0)
[2024-08-01] MEDS: HYDROCODONE/APAP 5/325MG TABLET PO ONE (13:32)
[2024-08-01 17:28] LABS: THYROID STIMULATING HORMONE 0.04 uIU/mL (0.358-3.74)
[2024-08-01 20:00] VITALS: BP 160/62; TEMP 98.2; O2SAT 97
[2024-08-02 07:09] LABS: FOLIC ACID 5.4 ng/mL (>3.0)
[2024-08-02 08:07] LABS: HEPATITIS B SURFACE AB Reactive (.)
== END 2024-08-01 20:30 | disposition home or self-care (01) | DRG 917 ==
LOC: ER 13:27 → TELE 16:08
DX: T42.4X1A Poisoning by benzodiazepines, accidental (unintentional), initial encounter (principal); G92.8 Other toxic encephalopathy; N18.6 End stage renal disease; I16.1 Hypertensive emergency; I67.4 Hypertensive encephalopathy; I12.0 Hypertensive chronic kidney disease with stage 5 chronic kidney disease or end stage renal disease; G82.20 Paraplegia, unspecified; Z20.822 Contact with and (suspected) exposure to COVID-19; Z89.512 Acquired absence of left leg below knee; Z99.2 Dependence on renal dialysis; E11.22 Type 2 diabetes mellitus with diabetic chronic kidney disease; E78.5 Hyperlipidemia, unspecified; E03.9 Hypothyroidism, unspecified; K21.9 Gastro-esophageal reflux disease without esophagitis; F41.9 Anxiety disorder, unspecified; Z79.899 Other long term (current) drug therapy; Z98.890 Other specified postprocedural states; Z79.51 Long term (current) use of inhaled steroids; E11.42 Type 2 diabetes mellitus with diabetic polyneuropathy; T40.2X1A Poisoning by other opioids, accidental (unintentional), initial encounter; Y92.9 Unspecified place or not applicable; Z79.82 Long term (current) use of aspirin; Z79.4 Long term (current) use of insulin; R07.9 Chest pain, unspecified; E87.70 Fluid overload, unspecified
CPT/HCPCS: 36415; 70450-TC; 70496-TC; 70498-TC; 71045-TC; 80048-TC; 80053-TC; 80076-TC; 82140-TC; 82607-TC; 82962-TC; 83690-TC; 83735-TC; 83921; 84100-TC; 84425; 84443-TC; 84484-TC; 85025-TC; 85730-TC; 86706; 86850-TC; 87081-TC; 87340; 92526; 92611-TC; 93307-TC; 94799-TC; A6403; G0378; G0480; J0360; J1644; J2060; J2470; J7050; Q9967

== ENCOUNTER 2024-09-06 20:14 | Emergency (ER) | payer MEDICARE, OTHER ==
[~2024-09-06] VITALS: Ht 162.6 cm; Wt 79.4 kg
[~2024-09-06 20:14] MED LIST changes: +ALPR1TAB7 PO; -ALPR2TAB7 PO; -AMLO-212 PO; +ASPI-1169 PO; +BETA45CR3 TP; +CALC-1159 PO; -CHOL500052 PO; -DICL100G34 TP; +DOCU100C36 PO; -FLUT16SP16; +FOLI0.8T23 PO; -GABA-532 PO; +HYDR-3642 PO; -HYDR-500 PO; +INSU100I30 SQ; -INSU100V10 SQ; +LINA5TAB PO; -LORAZEPAM INJ 2 MG/ML VIAL IV ONE; +METH10TA7 PO; +METO25TA6 PO; +ONDA-97 PO; +PRAV20TA4 PO; +PREG25CA51 PO; +SODI5POW2 PO
[2024-09-06 21:10] LABS: BASOPHILS % (AUTO) 0.2 % (0.0-2.0); EOSINOPHILS # (AUTO) 0.1 K/uL (0.0-0.7); HEMATOCRIT 36 % (33-45); HEMOGLOBIN 11.2 g/dL (11.5-14.8); LYMPHOCYTES # (AUTO) 0.8 K/uL (0.8-4.8); LYMPHOCYTES % (AUTO) 28.8 % (20.0-44.0); MEAN CORPUSCULAR HEMOGLOBIN 28 PG (26.0-33.0); MEAN CORPUSCULAR HGB CONC 31 g/dl (31.0-36.0); MEAN CORPUSCULAR VOLUME 90 fL (82-100); MONOCYTES # (AUTO) 0.4 K/uL (0.1-1.30); MONOCYTES % (AUTO) 14.1 % (2.0-12.0); NEUTROPHILS # (AUTO) 1.4 K/uL (1.8-8.9); NEUTROPHILS % (AUTO) 53.9 % (43.0-81.0); PLATELET COUNT (AUTO) 86 K/uL (150-450); RED BLOOD CELL COUNT(AUTO) 4.05 MIL/uL (4.0-5.2); RED CELL DISTRIBUTION WIDTH 19.4 % (11.5-15.0); WHITE BLOOD COUNT (AUTO) 2.6 K/uL (4.3-11.0)
[2024-09-06 21:34] LABS: ALBUMIN 2.9 g/dL (3.4-5.0); BILIRUBIN,DIRECT 0.1 mg/dL (0.0-0.2); BILIRUBIN,TOTAL 0.4 mg/dL (0.2-1.0); CALCIUM, SERUM 9.5 mg/dL (8.5-10.1); CREATININE 3.1 mg/dL (0.6-1.3); TOTAL PROTEIN, SERUM 6.4 g/dL (6.4-8.2)
[2024-09-06 22:00] LABS: ANISOCYTOSIS 1+; EOSINOPHILS % (MANUAL) 6 % (0-4); LYMPHOCYTES % (MANUAL) 33 % (16-48); MONOCYTES % (MANUAL) 14 % (0-11.0); NEUTROPHILS % (MANUAL) 47 (42-76); PLATELET ESTIMATE DECREASED
[2024-09-07] MEDS ORDERED: ACETAMINOPHEN 325 MG TABLET ONE (03:54)
[2024-09-07] MEDS: ACETAMINOPHEN 325 MG TABLET PO ONE (03:55)
[2024-09-07 04:54] VITALS: BP 144/82; TEMP 98.6; O2SAT 99
== END 2024-09-07 04:56 | disposition home or self-care (01) ==
LOC: ER 20:15
DX: R10.84 Generalized abdominal pain (principal); E11.22 Type 2 diabetes mellitus with diabetic chronic kidney disease; N18.6 End stage renal disease; G82.20 Paraplegia, unspecified; G89.29 Other chronic pain; Z79.82 Long term (current) use of aspirin; Z79.84 Long term (current) use of oral hypoglycemic drugs; Z79.899 Other long term (current) drug therapy; Z89.512 Acquired absence of left leg below knee; Z60.2 Problems related to living alone
CPT/HCPCS: 36415; 80048-TC; 80076-TC; 83690-TC; 85025-TC